=== PATIENT | female | born 1940 | race Caucasian/White ===

== ENCOUNTER 2019-05-09 08:30 | Inpatient (IN) | payer MEDICARE, BC ==
[2019-05-14] MEDS ORDERED: Povidone-Iodine 10% Soln 118.25 ML Bottle ONE (06:40)
[2019-05-14] MEDS ORDERED: Clindamycin Phosphate 900 MG in Sodium Chloride 0.9% 100 ML IV ONE (08:30)
[2019-05-14] MEDS ORDERED: Lactated Ringers 1,000 ML IV SCH (08:30)
[2019-05-14] MEDS: Nozin Nasal Sanitizer NASBOTH SCH ×2 (08:32→20:18)
[2019-05-14] MEDS ORDERED: Propofol 200 MG/20 ML SDV ONE ×2 (08:53→13:04)
[2019-05-14] MEDS ORDERED: Midazolam 1 MG/ML 2 ML SDV ONE (08:53)
[2019-05-14] MEDS ORDERED: fentaNYL 100 MCG/2 ML SDV ONE (08:53)
[2019-05-14] MEDS ORDERED: Tranexamic Acid 650 MG in Sodium Chloride 0.9% 50 ML IV ONE (11:00)
[2019-05-14] MEDS ORDERED: Lactated Ringers 1,000 ML ONE (13:34)
[2019-05-14] MEDS ORDERED: Tranexamic Acid 650 MG in Sodium Chloride 0.9% 50 ML IV PRN (14:00)
[2019-05-14] MEDS ORDERED: Magnesium Hydroxide 400 MG/5 ML Susp 30 ML Cup PO PRN (14:21)
[2019-05-14] MEDS ORDERED: Acetaminophen/HYDROcodone 325-5 MG Tab PO PRN (14:21)
[2019-05-14] MEDS ORDERED: Acetaminophen 325 MG Tab PO PRN (14:21)
[2019-05-14] MEDS ORDERED: Clindamycin Phosphate 900 MG in Dextrose 5% in Water 50 ML IV SCH ×2 (14:30)
[2019-05-14] MEDS: Morphine 2 MG/ML Syringe IVPUSH PRN (15:55)
[2019-05-14] MEDS ORDERED: Simvastatin 20 MG Tab PO SCH (17:00)
[2019-05-14] MEDS: Ondansetron 4 MG/2 ML SDV IVPUSH PRN (17:03)
--- NOTE | 2019-05-14 17:04 | CR ---
Knee 1V or 2V Lt CLINICAL HISTORY: Left knee arthroplasty FINDINGS: Patient is status post recent 3 component total knee arthroplasty. Components appear well seated. Patella appears somewhat high writing. This may be positional. There is intra-articular subcutaneous air. Impression: Recent 3 component total knee arthroplasty
[2019-05-14] MEDS: Acetaminophen/oxyCODONE 325-5 MG Tab PO PRN (17:09)
[2019-05-14] MEDS: Clindamycin Phosphate 900 MG in Sodium Chloride 0.9% 100 ML IV SCH (20:03)
[2019-05-14] MEDS: Docusate Sodium 100 MG Cap PO SCH (20:21)
[2019-05-14] MEDS: Citalopram 20 MG Tab PO SCH (20:21)
[2019-05-14] MEDS: Metoprolol Succinate 25 MG Tab.ER PO SCH (20:22)
[2019-05-14] MEDS: Potassium Chloride 20 MEQ Tab.ER PO SCH (20:22)
[2019-05-14] MEDS: Simvastatin 20 MG Tab PO SCH (20:23)
[2019-05-14] MEDS ORDERED: Docusate Sodium 100 MG Cap PO SCH (21:00)
[2019-05-14] MEDS ORDERED: Non-Formulary Medication 1 Each (Citalopram Hydrobromide [Citalopram Hbr] 20 MG) PO SCH (21:00)
[2019-05-14] MEDS ORDERED: Metoprolol Succinate 50 MG Tab.ER PO SCH (21:00)
[2019-05-14] MEDS ORDERED: POTASSIUM CHLORIDE 16 MEQ PO SCH (21:00)
[2019-05-14] MEDS: Sodium Chloride 0.9% 1,000 ML IV SCH (23:07)
[2019-05-15] MEDS: Acetaminophen/oxyCODONE 325-5 MG Tab PO PRN ×4 (03:07→15:23)
[2019-05-15] MEDS: Clindamycin Phosphate 900 MG in Sodium Chloride 0.9% 100 ML IV SCH ×2 (03:08→11:33)
[2019-05-15] MEDS: Pantoprazole 40 MG Tab.CR PO SCH (07:05)
[2019-05-15] MEDS: Sodium Chloride 0.9% 1,000 ML IV SCH ×2 (07:14→15:28)
[2019-05-15] MEDS: Nozin Nasal Sanitizer NASBOTH SCH ×2 (08:53→20:50)
[2019-05-15] MEDS: Citalopram 20 MG Tab PO SCH ×2 (08:54→20:46)
[2019-05-15] MEDS: Docusate Sodium 100 MG Cap PO SCH ×2 (08:54→20:46)
[2019-05-15] MEDS: Potassium Chloride 20 MEQ Tab.ER PO SCH ×2 (08:54→20:46)
[2019-05-15] MEDS: Saliva Substitute Oral Spray 120 ML Bottle MUCMEM SCH (08:55)
[2019-05-15] MEDS: Metoprolol Succinate 25 MG Tab.ER PO SCH ×2 (08:55→20:47)
[2019-05-15] MEDS ORDERED: Non-Formulary Medication 1 Each (Omeprazole [Omeprazole] 40 MG) PO SCH (09:00)
[2019-05-15] MEDS ORDERED: Enoxaparin 30 MG/0.3 ML Syringe SUBCUT SCH (09:00)
[2019-05-15] MEDS ORDERED: SALIVA STIMULANT AGENTS COMB PO SCH (09:00)
[2019-05-15] MEDS: Enoxaparin 30 MG/0.3 ML Syringe SUBCUT SCH (09:06)
[2019-05-15] MEDS: Morphine 2 MG/ML Syringe IVPUSH PRN ×2 (10:46→15:20)
[2019-05-15] MEDS ORDERED: Sodium Chloride 0.9% 500 ML IV ONE ×2 (14:43→19:00)
[2019-05-15] MEDS: Simvastatin 20 MG Tab PO SCH (20:46)
[2019-05-15] MEDS ORDERED: Potassium Chloride 20 MEQ Tab.ER PO SCH (21:00)
[2019-05-16] MEDS: Sodium Chloride 0.9% 1,000 ML IV SCH ×2 (01:53→09:54)
[2019-05-16] MEDS: Acetaminophen/oxyCODONE 325-5 MG Tab PO PRN ×4 (02:10→21:45)
[2019-05-16] MEDS: Morphine 2 MG/ML Syringe IVPUSH PRN (05:18)
[2019-05-16] MEDS: Pantoprazole 40 MG Tab.CR PO SCH (07:38)
[2019-05-16] MEDS: Nozin Nasal Sanitizer NASBOTH SCH ×2 (10:18→21:33)
[2019-05-16] MEDS: Citalopram 20 MG Tab PO SCH ×2 (10:19→21:33)
[2019-05-16] MEDS: Docusate Sodium 100 MG Cap PO SCH ×2 (10:19→21:33)
[2019-05-16] MEDS: Enoxaparin 30 MG/0.3 ML Syringe SUBCUT SCH (10:20)
[2019-05-16] MEDS: Saliva Substitute Oral Spray 120 ML Bottle MUCMEM SCH (10:21)
[2019-05-16] MEDS: Metoprolol Succinate 25 MG Tab.ER PO SCH ×2 (10:22→21:33)
[2019-05-16] MEDS ORDERED: Calcium Gluconate 1 GM in Sodium Chloride 0.9% 100 ML IV ONE (11:00)
[2019-05-16] MEDS: Potassium Chloride 20 MEQ Tab.ER PO SCH (12:11)
[2019-05-16] MEDS: Ondansetron 4 MG/2 ML SDV IVPUSH PRN (15:45)
[2019-05-16] MEDS: Simvastatin 20 MG Tab PO SCH (21:34)
[2019-05-17] MEDS: Acetaminophen/oxyCODONE 325-5 MG Tab PO PRN (02:23)
[2019-05-17] MEDS: Morphine 2 MG/ML Syringe IVPUSH PRN (04:28)
[2019-05-17] MEDS ORDERED: Sodium Phosphate,Monobasic/Sodium Phosphate,Dibasic Enema 133 ML Bottle RECTAL ONE (07:38)
[2019-05-17 08:22] VITALS: BP 139/66; PULSE 69
[2019-05-17] MEDS: Docusate Sodium 100 MG Cap PO SCH (09:00)
[2019-05-17] MEDS: Nozin Nasal Sanitizer NASBOTH SCH (09:00)
[2019-05-17] MEDS: Saliva Substitute Oral Spray 120 ML Bottle MUCMEM SCH (09:00)
[2019-05-17] MEDS: Pantoprazole 40 MG Tab.CR PO SCH (09:00)
[2019-05-17] MEDS: Metoprolol Succinate 25 MG Tab.ER PO SCH (09:00)
[2019-05-17] MEDS: Enoxaparin 30 MG/0.3 ML Syringe SUBCUT SCH (09:00)
[2019-05-17] MEDS: Citalopram 20 MG Tab PO SCH (09:00)
[2019-05-17] MEDS: Potassium Chloride 20 MEQ Tab.ER PO SCH (09:01)
--- NOTE | 2019-05-28 13:41 | OR ---
DATE OF PROCEDURE: 05/14/2019 SURGEON: Will Moran MD PREOPERATIVE DIAGNOSIS: Severe osteoarthritis, left knee. POSTOPERATIVE DIAGNOSIS: Severe osteoarthritis, left knee with patella ching. PROCEDURE: Left total knee arthroplasty using Rahul Persona components. INDICATIONS: Janette is an 79-year-old female with a history of progressive pain, stiffness, and disability related to severe end-stage osteoarthritis of both knees. She has a patella ching with complete loss of articular cartilage in the patellofemoral joint and moderate-to- severe changes of medial and lateral compartments. Has approximately a 20-degree flexion contracture in both knees and progressive difficulty with ambulation. She now presents for left total knee arthroplasty. Risks, benefits, potential complications of the procedure were discussed. She agrees to proceed. PROCEDURE IN DETAIL: After adequate anesthesia was obtained, patient was placed supine with a tourniquet about the left upper thigh. Left leg was prepped and draped in a sterile fashion. Leg was exsanguinated and tourniquet inflated to 300 mmHg. A longitudinal incision was made over the anterior aspect of the knee, carried down to the subcutaneous tissues. Hemostasis obtained with electrocautery. Medial parapatellar arthrotomy was performed. The patellofemoral joint reveals severe end-stage changes with complete loss of articular cartilage as well as significant thinning of the patella and grooves worn into both the patella and the trochlea. Osteophytes were removed from the periphery of the patella. Due to significant thinning, it was felt that resurfacing would be risky and the patella was not cut. Knee was flexed, and the intramedullary canal of the femur was entered with a drill. Intramedullary guide was placed, and the distal femoral guide was secured. An additional 4 mm was removed due to the flexion contracture. Attention was then turned to the tibia, where the extramedullary alignment jig was placed. This was aligned and secured, and the proximal tibia was cut with an oscillating saw. Knee was extended and remaining meniscus was excised. The femur was then sized and drill holes made for the cutting jig. Cutting jig was secured and remaining anterior, posterior, and chamfer cuts were then made. Trial femur was placed. PEG holes were drilled and an intercondylar notch cut was made for a posterior cruciate sacrificing component. Trial femur was removed, and the tibia was sized. The femur was replaced, appropriately sized tibial tray and a 10-mm insert were then placed. The knee was taken through range of motion and found to be stable in both flexion and extension. Tibial tray was secured. Proximal tibia was drilled and a broach used to cut tibial fins. Trials were removed, and the knee was thoroughly irrigated with the pulse lavage. Bone surfaces were dried. The components were cemented in place and the excess cement was removed. The knee was held in full extension with a trial tibial insert. Knee was held in full extension as the cement cured. The patella tracked extremely well. Again, due to the very thin nature of the remaining patella, patella ching, making likelihood of patella instability more likely with a resurfacing possible, the patella was left intact. Knee was then irrigated. This was followed by irrigation with a dilute Betadine solution, which was left in place for 2-1/2 minutes. The final tibial polyethylene was snapped into position. Knee was irrigated once again, and the knee was then closed with #2 Ethibond in interrupted fashion, the capsule 2-0 Vicryl, and a running 3-0 Monocryl on the skin, and Steri-Strips were applied. Light compressive dressing was then placed. The patient tolerated procedure well, there were no complications, taken from the operating room in stable condition. Will Moran MD /[id number]
== END 2019-05-17 10:42 | DRG 470 ==
LOC: JP.SDS 05-14 07:36 → JP.SDSSCHI 05-14 07:36 → EDSTATUS 05-14 10:00 → JP.MS 05-14 14:21
PROVIDERS: ADMIT Specialist; ATTEND Specialist
PROC: 0SRD0J9 Replacement of Left Knee Joint with Synthetic Substitute, Cemented, Open Approach (ICD-10-PCS; principal; 2019-05-14)
DX: M17.12 Unilateral primary osteoarthritis, left knee (principal); I10 Essential (primary) hypertension; E11.9 Type 2 diabetes mellitus without complications; J44.9 Chronic obstructive pulmonary disease, unspecified; E78.5 Hyperlipidemia, unspecified; K21.9 Gastro-esophageal reflux disease without esophagitis; M85.80 Other specified disorders of bone density and structure, unspecified site; N32.81 Overactive bladder; F41.9 Anxiety disorder, unspecified; F32.9 Major depressive disorder, single episode, unspecified; E55.9 Vitamin D deficiency, unspecified; Z90.49 Acquired absence of other specified parts of digestive tract; Z90.710 Acquired absence of both cervix and uterus; Z90.89 Acquired absence of other organs; Z88.1 Allergy status to other antibiotic agents; Z88.2 Allergy status to sulfonamides; Z88.0 Allergy status to penicillin; Z88.8 Allergy status to other drugs, medicaments and biological substances
CPT/HCPCS: 36415; 73560-26-LT; 73560-LT; 80048; 85027; 86850; 86900; 86901; 97110-GP; 97116-GP; 97162-GP; 97165-GO; 97530-GP; 97535-GP; 97760-GP; A9270-GY; C1713; C1776; J0610; J1650; J2250; J2270; J2405; J2704; J3010; J3490; J7030; J7040; J7050; J7120

== ENCOUNTER 2019-06-02 08:48 | Emergency (ER) | payer MEDICARE, BC ==
[2019-06-02] MEDS ORDERED: Acetaminophen/HYDROcodone 325-5 MG Tab PO ONE (09:06)
--- NOTE | 2019-06-02 09:09 | EDM.PDOC ---
ED HPI GENERAL MEDICAL PROBLEM - General Chief Complaint: Lower Extremity Injury/Pain Stated Complaint: ACCIDENT VIA [facility] Time Seen by Provider: 06/02/19 09:04 Source of Information: Reports: Patient History Limitations: Reports: No Limitations - History of Present Illness INITIAL COMMENTS - FREE TEXT/NARRATIVE: 79-year-old female presents emergency department with a complaint of right ankle pain, she injured herself in the shower this morning when she slipped and twisted on her right ankle. She denies any other injuries did not hit her head there was no loss of consciousness, pain is so severe she cannot bear weight Right Ankle Pain Score (Numeric/FACES): 9 - Related Data Allergies Allergy/AdvReac Type Severity Reaction Status Date / Time NESS Inhibitors Allergy unknown Verified 06/02/19 09:08 atenolol Allergy Bradycardia Verified 06/02/19 09:08 cephalexin Allergy Shortness Verified 06/02/19 09:08 of Breath heparin Allergy Hives Verified 06/02/19 09:08 imipramine [Imipramine] Allergy Cannot Verified 06/02/19 09:08 Remember ofloxacin [From Floxin] Allergy Cannot Verified 06/02/19 09:08 Remember Penicillins Allergy Shortness Verified 06/02/19 09:08 of Breath Sulfa (Sulfonamide Allergy Shortness Verified 06/02/19 09:08 Antibiotics) of Breath tetracycline [Tetracycline] Allergy Shortness Verified 06/02/19 09:08 of Breath warfarin [Warfarin] Allergy Hives Verified 06/02/19 09:08 lisinopril AdvReac Cough Verified 06/02/19 09:08 Home Meds: Home Meds Acetaminophen [Tylenol Extra Strength] 500 mg PO Q12H PRN 02/18/14 [History] Aspirin [Lv Chewable Aspirin] 81 mg PO DAILY 02/18/14 [History] Cholecalciferol (Vitamin D3) [Vitamin D3] 1,000 unit PO DAILY 02/18/14 [History] Citalopram Hydrobromide [Citalopram HBr] 20 mg PO BID 02/18/14 [History] Simvastatin 20 mg PO QPM 02/18/14 [History] Metoprolol Succinate 25 mg PO BID 07/06/17 [History] Omeprazole 40 mg PO DAILY 07/06/17 [History] Potassium Chloride 16 meq PO BID 04/30/19 [History] Saliva Stimulant Agents Comb.2 [Biotene Oralbalance] 1 applic PO DAILY 05/14/19 [History] Enoxaparin Sodium [Lovenox] 30 mg SQ DAILY 05/31/19 [History] Hydrocodone/Acetaminophen [[place] 5-325 Tablet] 1 tab PO Q6HR PRN 05/31/19 [ History] Oxybutynin Chloride [Ditropan Xl] 10 mg PO DAILY 06/02/19 [History] Past Medical History HEENT History: Reports: Cataract, Glaucoma, Other (See Below) Other HEENT History: recurring ear infections Cardiovascular History: Reports: Heart Murmur, High Cholesterol, Hypertension, Pacemaker, SOB on Exertion, Other (See Below) Other Cardiovascular History: Paroxysmal Atrial Flutter Respiratory History: Reports: Asthma, Bronchitis, Recurrent, Sleep Apnea Gastrointestinal History: Reports: Cholelithiasis, Chronic Diarrhea, GERD Genitourinary History: Reports: Urinary Incontinence 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: , 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 Musculoskeletal History: Reports: Osteoarthritis, Other (See Below) Other Musculoskeletal History: bilateral knee pain Neurological History: Reports: Headaches, Chronic, Neuropathy, Peripheral, Vertigo Psychiatric History: Reports: Anxiety, Depression, Panic Attack Endocrine/Metabolic History: Reports: Diabetes, Type II - Infectious Disease History Infectious Disease History: Reports: Chicken Pox, Measles, Mumps - Past Surgical History Head Surgeries/Procedures: Reports: None HEENT Surgical History: Reports: Tonsillectomy Cardiovascular Surgical History: Reports: Pacer Respiratory Surgical History: Reports: None GI Surgical History: Reports: Appendectomy, Cholecystectomy, Colonoscopy, EGD, Other (See Below) Female Surgical History: Reports: Cystectomy, Hysterectomy, Other (See Below) Endocrine Surgical History: Reports: None Neurological Surgical History: Reports: None Musculoskeletal Surgical History: Reports: Knee Replacement Other Musculoskeletal Surgeries/Procedures:: left total knee 05/14/19 Social & Family History - Family History Family Medical History: Noncontributory - Tobacco Use Smoking Status *Q: Never Smoker Second Hand Smoke Exposure: No - Caffeine Use Caffeine Use: Reports: None - Recreational Drug Use Recreational Drug Use: No Review of Systems - Review of Systems Review Of Systems: See Below Musculoskeletal: Reports: Joint Pain (Right ankle pain) Skin: Reports: No Symptoms Neurological: Reports: No Symptoms ED EXAM, GENERAL - Physical Exam Exam: See Below Free Text/Narrative:: Examination of the right ankle I do not appreciate any erythema or edema she is exquisitely tender to any movement at all of that ankle pedal pulses +2 there is no tenderness at the knee no tenderness at the hip sensation is intact Exam Limited By: No Limitations General Appearance: Alert, Mild Distress ED TRAUMA EXTREMITY PROCEDURES - Splinting Right Lower Extremity Pre-Procedure NV Status: Normal Post-Procedure NV Status: Normal Splint Material: Fiberglass Splint Design: Posterior Applied & Form Fitted By: Provider, Nurse Provider Post-Splint Application NV Check: NV Status Normal, Good Position Complications: No Course - Vital Signs Last Recorded V/S: Last Vital Signs Temp 96.9 F 06/02/19 10:12 Pulse 68 06/02/19 10:12 Resp 20 06/02/19 10:12 BP 135/47 L 06/02/19 10:12 Pulse Ox 93 L 06/02/19 10:12 - Orders/Labs/Meds Orders: Active Orders 24 hr Category Date Time Status Ankle 2V Rt [CR] Stat Exams 06/02/19 09:06 Taken Meds: Medications Discontinued Medications Generic Name Dose Route Start Last Admin Trade Name Rosario PRN Reason Stop Dose Admin Hydrocodone Bitart/Acetaminophen 1 tab 06/02/19 09:06 06/02/19 09:11 [place] 325-5 Mg PO 06/02/19 09:07 1 tab ONETIME ONE Administration Fentanyl 50 mcg 06/02/19 09:32 06/02/19 09:40 Sublimaze NASBOTH 06/02/19 09:33 50 mcg ONETIME ONE Administration Hydromorphone HCl 1 mg 06/02/19 10:04 06/02/19 10:09 Dilaudid IM 06/02/19 10:05 1 mg ONETIME ONE Administration Departure - Departure Time of Disposition: 10:54 Disposition: DC/Tfer to [facility] Condition: Fair Clinical Impression: Fracture of shaft of right tibia Qualifiers: Encounter type: initial encounter Fracture type: closed Fracture morphology: spiral Fracture alignment: nondisplaced Qualified Code(s): S82.244A - Nondisplaced spiral fracture of shaft of right tibia, initial encounter for closed fracture - Discharge Information Instructions: Tibial Fracture, Adult Referrals: Will Gonzalez Sr, MD [Primary Care Provider] - Forms: ED Department Discharge Additional Instructions: Use hydrocodone as needed for pain control, orthopedics will call you for an appointment time on Tuesday or Tuesday of next week Sepsis Event Note - Evaluation Sepsis Screening Result: No Definite Risk - Focused Exam Vital Signs: Vital Signs Temp Pulse Resp BP Pulse Ox 06/02/19 10:12 96.9 F 68 20 135/47 L 93 L 06/02/19 09:02 96.7 F L 66 20 149/57 H 96 Date Exam was Performed: 06/02/19 Time Exam was Performed: 10:52 - My Orders Last 24 Hours: My Active Orders 06/02/19 09:06 Ankle 2V Rt [CR] Stat - Assessment/Plan Last 24 Hours: My Active Orders 06/02/19 09:06 Ankle 2V Rt [CR] Stat Plan: Assessment Acuity = acute Site and laterality = right shaft tibia fracture Etiology = secondary to fall Manifestations = none Location of injury = Home Lab values = x-ray describes fracture above official read radiologist pending Plan She is placed in a posterior splint will follow-up with orthopedics on Tuesday, hydrocodone 5/325 1 tab p.o. 3 times daily for pain control This note was dictated using [employer] voice recognition software please call with any questions on syntax or grammar.
[2019-06-02] MEDS ORDERED: fentaNYL 100 MCG/2 ML SDV NASBOTH ONE (09:32)
[2019-06-02] MEDS ORDERED: HYDROmorphone 1 MG/ML Syringe IM ONE (10:04)
[2019-06-02 10:13] VITALS: BP 135/47; PULSE 68
--- NOTE | 2019-06-04 08:51 | CR ---
Ankle 2V Rt CLINICAL HISTORY: Pain, fall FINDINGS: Study is limited to 2 views. There is an oblique displaced fracture of the distal tibial shaft. There is also lucency through the medial malleolus. Ankle mortise is anatomic.. There is a nondisplaced fracture of the distal fibula with slight angulation. There is also a fracture of the proximal fibula. Impression: Limited study Displaced oblique fracture of the distal third of the tibial shaft Probable fracture through the medial malleolus Fractures of the proximal and distal fibula
== END 2019-06-02 12:30 ==
LOC: JP.ED 08:48
DX: S82.244A Nondisplaced spiral fracture of shaft of right tibia, initial encounter for closed fracture (principal); E78.00 Pure hypercholesterolemia, unspecified; I10 Essential (primary) hypertension; J45.909 Unspecified asthma, uncomplicated; E11.40 Type 2 diabetes mellitus with diabetic neuropathy, unspecified; F41.9 Anxiety disorder, unspecified; F32.9 Major depressive disorder, single episode, unspecified; K21.9 Gastro-esophageal reflux disease without esophagitis; Z88.0 Allergy status to penicillin; Z88.8 Allergy status to other drugs, medicaments and biological substances; Z88.1 Allergy status to other antibiotic agents; Z88.2 Allergy status to sulfonamides; Z79.82 Long term (current) use of aspirin; Z79.899 Other long term (current) drug therapy; X50.1XXA Overexertion from prolonged static or awkward postures, initial encounter
CPT/HCPCS: 29125; 29515; 73600; 96372; 99283; 99284; A9270; J1170; J3010

== ENCOUNTER 2020-04-18 18:46 | Emergency (ER) | payer MEDICARE, BC ==
--- NOTE | 2020-04-18 18:57 | EDM.PDOC ---
ED HPI GENERAL MEDICAL PROBLEM - General Chief Complaint: Diabetic Complaint Stated Complaint: LOW BLOOD SUGAR VIA [facility] Time Seen by Provider: 04/18/20 18:52 Source of Information: Reports: Patient, EMS, Old Records History Limitations: Reports: No Limitations - History of Present Illness INITIAL COMMENTS - FREE TEXT/NARRATIVE: 80 yo diabetic female from a local [facility] presents for hypoglycemia. It sounds like she was given her diabetic medication just a bit too far in advance of getting to her evening meal and developed hypoglycemia as she sat down to eat dinner. Due to the low BS she never actually got around to eating. Sent by EMS who noted a BS in the 30's en route. Glucose given po per EMS. 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) (glucose IV) - Related Data Allergies Allergy/AdvReac Type Severity Reaction Status Date / Time NESS Inhibitors Allergy unknown Verified 04/18/20 18:55 atenolol Allergy Bradycardia Verified 04/18/20 18:55 cephalexin Allergy Shortness Verified 04/18/20 18:55 of Breath heparin Allergy Hives Verified 04/18/20 18:55 imipramine [Imipramine] Allergy Cannot Verified 04/18/20 18:55 Remember ofloxacin [From Floxin] Allergy Cannot Verified 04/18/20 18:55 Remember Penicillins Allergy Shortness Verified 04/18/20 18:55 of Breath Sulfa (Sulfonamide Allergy Shortness Verified 04/18/20 18:55 Antibiotics) of Breath tetracycline [Tetracycline] Allergy Shortness Verified 04/18/20 18:55 of Breath warfarin [Warfarin] Allergy Hives Verified 04/18/20 18:55 lisinopril AdvReac Cough Verified 04/18/20 18:55 Home Meds: Home Meds Acetaminophen [Tylenol Extra Strength] 500 mg PO Q12H PRN 02/18/14 [History] Aspirin [Lv Chewable Aspirin] 81 mg PO DAILY 02/18/14 [History] Simvastatin 10 mg PO QPM 02/18/14 [History] Omeprazole 40 mg PO DAILY 07/06/17 [History] Potassium Chloride 16 meq PO BID 04/30/19 [History] Oxybutynin Chloride [Ditropan Xl] 10 mg PO DAILY 06/02/19 [History] Metoprolol Succinate 25 mg PO DAILY 06/28/19 [History] Sennosides [Senna] 1 tab PO BID 06/28/19 [History] polyethylene glycoL 3350 [MiraLAX] 17 gm PO DAILY 09/13/19 [History] Albuterol Sulfate [Albuterol Sulfate Hfa] 1 puff IH QID 11/21/19 [History] Furosemide [Lasix] 20 mg PO DAILY 11/21/19 [History] Trolamine Salicylate/Aloe Vera [Aspercreme 10% Cream] 85 gm TP .WHEN NEEDED PRN 11/21/19 [History] Acetaminophen/oxyCODONE [Percocet 325-5 MG] 1 tab PO BEDTIME PRN 01/01/20 [History] DULoxetine [Cymbalta] 90 mg PO DAILY 01/01/20 [History] Naproxen Sodium 220 mg PO Q12H PRN 01/01/20 [History] hydrOXYzine HCL [Hydroxyzine HCl] 25 mg PO BEDTIME 01/01/20 [History] Insulin Aspart [NovoLOG] 10 unit SQ TIDMEALS 02/14/20 [History] Losartan Potassium 25 mg PO DAILY 02/14/20 [History] Past Medical History HEENT History: Reports: Cataract, Glaucoma, Other (See Below) Other HEENT History: recurring ear infections Cardiovascular History: Reports: Heart Murmur, High Cholesterol, Hypertension, Pacemaker, SOB on Exertion, Other (See Below) Other Cardiovascular History: Paroxysmal Atrial Flutter Respiratory History: Reports: Asthma, Bronchitis, Recurrent, Sleep Apnea Gastrointestinal History: Reports: Cholelithiasis, Chronic Diarrhea, GERD Genitourinary History: Reports: Urinary Incontinence 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 R shoulder pain. s/p R tibia Fx 06/28/19 Neurological History: Reports: Headaches, Chronic, Neuropathy, Peripheral, Vertigo Psychiatric History: Reports: Anxiety, Depression, Panic Attack Endocrine/Metabolic History: Reports: Diabetes, Type II Hematologic History: Reports: None Immunologic History: Reports: None Oncologic (Cancer) History: Reports: None Dermatologic History: Reports: None - Infectious Disease History Infectious Disease History: Reports: Chicken Pox, Measles, Mumps - Past Surgical History Head Surgeries/Procedures: Reports: None HEENT Surgical History: Reports: Tonsillectomy Cardiovascular Surgical History: Reports: Pacer Respiratory Surgical History: Reports: None GI Surgical History: Reports: Appendectomy, Cholecystectomy, Colonoscopy, EGD, Other (See Below) Other GI Surgeries/Procedures: Hemorroidectomy Female Surgical History: Reports: Cystectomy, Hysterectomy, Other (See Below) Other Female Surgeries/Procedures: Had 4 bladder surgery Endocrine Surgical History: Reports: None Neurological Surgical History: Reports: None Musculoskeletal Surgical History: Reports: Knee Replacement, Other (See Below) Other Musculoskeletal Surgeries/Procedures:: left total knee 05/14/19. rt tib fx and orif Social & Family History - Family History Family Medical History: No Pertinent Family History - Caffeine Use Caffeine Use: Reports: Soda, Tea ED ROS GENERAL - Review of Systems Review Of Systems: See Below Constitutional: Reports: Malaise, Weakness HEENT: Reports: No Symptoms Respiratory: Reports: No Symptoms Cardiovascular: Reports: No Symptoms Endocrine: Reports: Low Glucose GI/Abdominal: Reports: No Symptoms : Reports: No Symptoms Musculoskeletal: Reports: No Symptoms Skin: Reports: No Symptoms Neurological: Reports: Confusion Psychiatric: Reports: No Symptoms ED EXAM GENERAL NO PERIP PULSE - Physical Exam Exam: See Below Exam Limited By: No Limitations General Appearance: Alert, WD/WN, No Apparent Distress Eye Exam: Bilateral Eye: Normal Inspection Ears: Normal External Exam, Normal Canal, Hearing Grossly Normal, Normal TMs Nose: Normal Inspection, No Blood Throat/Mouth: Normal Inspection, Normal Lips, Normal Oropharynx, Normal Voice, No Airway Compromise Head: Atraumatic, Normocephalic Neck: Normal Inspection Respiratory/Chest: No Respiratory Distress, Lungs Clear, Normal Breath Sounds, No Accessory Muscle Use Cardiovascular: Regular Rate, Rhythm, No Edema GI/Abdominal: Soft, Non-Tender Neurological: Alert, Oriented, CN II-XII Intact, Normal Cognition, No Motor/Sensory Deficits Psychiatric: Normal Affect, Normal Mood Skin Exam: Warm, Dry, Intact, Normal Color, No Rash Course - Vital Signs Last Recorded V/S: Last Vital Signs Temp 36.3 C 04/18/20 18:53 Pulse 94 04/18/20 18:53 Resp 16 04/18/20 18:53 BP 175/77 H 04/18/20 18:53 Pulse Ox 95 04/18/20 18:53 - Orders/Labs/Meds Orders: Active Orders 24 hr Category Date Time Status GLUCOSE POC LAB TO COLLECT JPM [POC] Stat Lab 04/18/20 19:35 Received GLUCOSE POC LAB TO COLLECT JPM [POC] Stat Lab 04/18/20 19:58 Ordered Labs: Laboratory Tests 04/18/20 Range/Units 18:52 POC Glucose 33 L* (74-106) MG/DL - Re-Assessments/Exams Free Text/Narrative Re-Assessment/Exam: 04/18/20 20:12 Glucose gradually rising here in the ER after being fed. Now 72, will send home. Departure - Departure Time of Disposition: 20:13 Disposition: Home, Self-Care 01 Condition: Good Clinical Impression: Hypoglycemia - Discharge Information *PRESCRIPTION DRUG MONITORING PROGRAM REVIEWED*: No *COPY OF PRESCRIPTION DRUG MONITORING REPORT IN PATIENT KEY: No Referrals: PCP,None [Primary Care Provider] - Forms: ED Department Discharge Additional Instructions: Check blood sugar before giving insulin to make sure she is not already low. Make sure not to give insulin too much in advance of a meal so that she becomes hypoglycemic before eating. Sepsis Event Note (ED) - Focused Exam Vital Signs: Vital Signs Temp Pulse Resp BP Pulse Ox 04/18/20 18:53 36.3 C 94 16 175/77 H 95 - My Orders Last 24 Hours: My Active Orders 04/18/20 19:35 GLUCOSE POC LAB TO COLLECT JPM [POC] Stat 04/18/20 19:58 GLUCOSE POC LAB TO COLLECT JPM [POC] Stat - Assessment/Plan Last 24 Hours: My Active Orders 04/18/20 19:35 GLUCOSE POC LAB TO COLLECT JPM [POC] Stat 04/18/20 19:58 GLUCOSE POC LAB TO COLLECT JPM [POC] Stat
[2020-04-18 19:19] VITALS: BP 175/77; PULSE 94
== END 2020-04-18 20:50 | disposition home or self-care (01) ==
LOC: JP.ED 18:46
DX: E11.649 Type 2 diabetes mellitus with hypoglycemia without coma (principal); I10 Essential (primary) hypertension; J45.909 Unspecified asthma, uncomplicated; K21.9 Gastro-esophageal reflux disease without esophagitis; F41.9 Anxiety disorder, unspecified; F32.9 Major depressive disorder, single episode, unspecified; E11.42 Type 2 diabetes mellitus with diabetic polyneuropathy; Z88.1 Allergy status to other antibiotic agents; Z88.8 Allergy status to other drugs, medicaments and biological substances; Z88.0 Allergy status to penicillin; Z88.2 Allergy status to sulfonamides; Z79.82 Long term (current) use of aspirin; Z79.4 Long term (current) use of insulin; Z90.49 Acquired absence of other specified parts of digestive tract; Z90.710 Acquired absence of both cervix and uterus; Z79.899 Other long term (current) drug therapy
CPT/HCPCS: 82962; 99284; 99285

== ENCOUNTER 2020-07-18 19:59 | Inpatient (IN) | payer MEDICARE, BC ==
[2020-07-18] MEDS ORDERED: Sodium Chloride 0.9% 10 ML Syringe FLUSH PRN (20:18)
[2020-07-18] MEDS ORDERED: Sodium Chloride 0.9% 500 ML IV ONE ×2 (21:08→22:14)
--- NOTE | 2020-07-18 21:16 | CRLCT ---
CT HEAD DATE: 07/18/2020 CLINICAL HISTORY: Patient with facial droop. TECHNIQUE: Standard CT scanning of the head was performed. COMPARISON: None. FINDINGS: There is no intracranial hemorrhage. There is no territorial infarction. There are mild microangiopathic changes. There is diffuse parenchymal volume loss. There is no mass effect or midline shift. The calvarium is unremarkable. The orbits are unremarkable. The paranasal sinuses are unremarkable. The mastoid air cells are unremarkable. The soft tissues are unremarkable. IMPRESSION: 1. No intracranial hemorrhage or territorial infarction. 2. Mild microangiopathic changes and diffuse parenchymal volume loss. Please note that all CT scans at this facility use dose modulation, iterative reconstruction, and/or weight-based dosing when appropriate to reduce radiation dose to as low as reasonably achievable. Dictated by: Feliz Goddard MD @ 07/18/2020 21:14:29 (Electronically Signed)
[2020-07-18] MEDS ORDERED: Cefepime 2 GM in Sodium Chloride 0.9% 50 ML IV ONE (22:23)
[2020-07-18] MEDS ORDERED: Lactated Ringers 1,000 ML IV SCH (22:30)
--- NOTE | 2020-07-18 22:33 | EDM.PDOC ---
ED HPI GENERAL MEDICAL PROBLEM - General Chief Complaint: Neuro Symptoms/Deficits Stated Complaint: POSSIBLE STROKE Time Seen by Provider: 07/18/20 20:18 Source of Information: Reports: EMS, Old Records History Limitations: Reports: Altered Mental Status - History of Present Illness INITIAL COMMENTS - FREE TEXT/NARRATIVE: Janette is an 80-year-old female presenting to the ED via [facility] from [facility] for evaluation of possible acute stroke. She was noted by nursing to have a left facial droop and was drooling the water out of her mouth that she was trying to drink. Patient reportedly has been increasingly weak throughout the day. Her saw her earlier today and noted that she had redness and swelling of her lower left eyelid and was seeming more tired than usual. EMS reported that she was quite hypotensive with a systolic pressure in the 70s. The patient does present with a POLST saying DNR/DNI and that she does not want any intensive care unit care but is not adverse to antibiotic and fluids for treatment of a reversible cause. 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 Generalized Pain Score (Numeric/FACES): 3 - Related Data Allergies Allergy/AdvReac Type Severity Reaction Status Date / Time NESS Inhibitors Allergy unknown Verified 04/18/20 18:55 atenolol Allergy Bradycardia Verified 04/18/20 18:55 cephalexin Allergy Shortness Verified 04/18/20 18:55 of Breath heparin Allergy Hives Verified 04/18/20 18:55 imipramine [Imipramine] Allergy Cannot Verified 04/18/20 18:55 Remember ofloxacin [From Floxin] Allergy Cannot Verified 04/18/20 18:55 Remember Penicillins Allergy Shortness Verified 04/18/20 18:55 of Breath Sulfa (Sulfonamide Allergy Shortness Verified 04/18/20 18:55 Antibiotics) of Breath tetracycline [Tetracycline] Allergy Shortness Verified 04/18/20 18:55 of Breath warfarin [Warfarin] Allergy Hives Verified 04/18/20 18:55 lisinopril AdvReac Cough Verified 04/18/20 18:55 Home Meds: Home Meds Acetaminophen [Acetaminophen Extra Strength] 500 mg PO BID 07/18/20 [History] Acetaminophen [Tylenol Extra Strength] 500 mg PO Q6H PRN 07/18/20 [History] Albuterol Sulfate [Albuterol Sulfate Hfa] 1 inhalation INH QID 07/18/20 [History] Aspirin 81 mg PO DAILY 07/18/20 [History] Calcium Carbonate [Tums] 1 - 2 tab.chew PO QID PRN 07/18/20 [History] DULoxetine HCl [Cymbalta] 90 mg PO DAILY 07/18/20 [History] Diphenoxylate HCl/Atropine [Diphenoxylate-Atrop 2.5-0.025] 1 - 2 tab-cap PO ASDIRECTED PRN MDD 6 07/18/20 [History] Furosemide 20 mg PO DAILY 07/18/20 [History] Gabapentin [Neurontin] 300 mg PO TID 07/18/20 [History] Gentamicin [Garamycin 0.3% Ophth Soln] 2 drop EYELF QID 07/18/20 [History] Insulin Aspart [NovoLOG] 4 - 14 units SUBCUT TID 07/18/20 [History] Insulin Aspart [NovoLOG] 5 units SUBCUT TIDMEALS 07/18/20 [History] Losartan Potassium 25 mg PO DAILY 07/18/20 [History] Metoprolol Succinate 25 mg PO DAILY 07/18/20 [History] Morphine Sulfate [Morphine Sulfate ER] 15 mg PO Q12H 07/18/20 [History] Naproxen Sodium 1 tab PO BID 07/18/20 [History] Omeprazole 20 mg PO DAILY 07/18/20 [History] Potassium Chloride [K-Tab ER] 16 meq PO BID 07/18/20 [History] QUEtiapine [SEROquel] 50 mg PO BEDTIME 07/18/20 [History] Sennosides/Docusate Sodium [Senna-Docusate Sodium Tablet] 2 tab PO BID 07/18/20 [History] Simvastatin 10 mg PO BEDTIME 07/18/20 [History] busPIRone HCl [Buspirone HCl] 15 mg PO BID 07/18/20 [History] polyethylene glycoL 3350 [Miralax] 17 gm PO DAILY 07/18/20 [History] Past Medical History HEENT History: Reports: Cataract, Glaucoma, Other (See Below) Other HEENT History: recurring ear infections Cardiovascular History: Reports: Heart Murmur, High Cholesterol, Hypertension, Pacemaker, SOB on Exertion, Other (See Below) Other Cardiovascular History: Paroxysmal Atrial Flutter Respiratory History: Reports: Asthma, Bronchitis, Recurrent, Sleep Apnea Gastrointestinal History: Reports: Cholelithiasis, Chronic Diarrhea, GERD Genitourinary History: Reports: Urinary Incontinence 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 R shoulder pain. s/p R tibia Fx 06/28/19 Neurological History: Reports: Headaches, Chronic, Neuropathy, Peripheral, Vertigo Psychiatric History: Reports: Anxiety, Depression, Panic Attack Endocrine/Metabolic History: Reports: Diabetes, Type II Hematologic History: Reports: None Immunologic History: Reports: None Oncologic (Cancer) History: Reports: None Dermatologic History: Reports: Other (See Below) Other Dermatologic History: diabetic foot ulcers - Infectious Disease History Infectious Disease History: Reports: Chicken Pox, Measles, Mumps - Past Surgical History HEENT Surgical History: Reports: Tonsillectomy Cardiovascular Surgical History: Reports: Pacer GI Surgical History: Reports: Appendectomy, Cholecystectomy, Colonoscopy, EGD, Other (See Below) Other GI Surgeries/Procedures: Hemorroidectomy Female Surgical History: Reports: Cystectomy, Hysterectomy, Other (See Below) Other Female Surgeries/Procedures: Had 4 bladder surgery Musculoskeletal Surgical History: Reports: Knee Replacement, Other (See Below) Other Musculoskeletal Surgeries/Procedures:: left total knee 05/14/19. rt tib fx and orif Social & Family History - Family History Family Medical History: No Pertinent Family History - Tobacco Use Tobacco Use Status *Q: Unknown Ever Used Tobacco Second Hand Smoke Exposure: No - Caffeine Use Caffeine Use: Reports: Coffee - Recreational Drug Use Recreational Drug Use: No ED ROS GENERAL - Review of Systems Review Of Systems: Unable To Obtain Reason Not Obtained: Altered mental status ED EXAM, NEURO - Physical Exam Exam: See Below Exam Limited By: Altered Mental Status General Appearance: Anxious, Mild Distress Eye Exam: Bilateral Eye: EOMI, PERRL Throat/Mouth: Normal Lips, Normal Voice, Other (By mucous membranes) Head Exam: Atraumatic, Normocephalic Neck: Normal Inspection, Supple. No: Carotid Bruit, Lymphadenopathy (R), Lymphadenopathy (L) Respiratory/Chest: No Respiratory Distress, Lungs Clear, Normal Breath Sounds, No Accessory Muscle Use Cardiovascular: Normal Peripheral Pulses, Regular Rate, Rhythm GI/Abdominal: Normal Bowel Sounds, Soft, Non-Tender. No: Guarding, Rigid, Rebound Neurological: Alert, Normal Dorsiflexion, CN II-XII Intact, Normal Plantar Flexion, Oriented x 3, Tremor (Essential type tremor), Other (Generalized weakness in all 4 extremities.) Extremities: No Pedal Edema, Redness (Right foot), Other (Bilateral hammertoes). No: Joint Swelling, Arm Pain, Augie's Sign, Leg Pain, Increased Warmth Psychiatric: Anxious Skin Exam: Warm, Intact, Erythema (Left lower eyelid and right foot) Course - Vital Signs Last Recorded V/S: Last Vital Signs Temp 35.8 C L 07/18/20 20:38 Pulse 65 07/18/20 22:15 Resp 16 07/18/20 21:58 BP 94/44 L 07/18/20 22:15 Pulse Ox 92 L 07/18/20 22:15 - Orders/Labs/Meds Orders: Active Orders 24 hr Category Date Time Status Chest 2V [CR] Stat Exams 07/18/20 20:18 Taken CULTURE BLOOD [BC] Stat Lab 07/18/20 22:29 Ordered CULTURE URINE [RM] Stat Lab 07/18/20 22:29 Ordered PROCALCITONIN [CHEM] Stat Lab 07/18/20 22:10 Ordered Cefepime [Maxipime] 2 gm Med 07/18/20 22:23 Active Sodium Chloride 0.9% [Normal Saline] 50 ml IV ONETIME Lactated Ringers [Ringers, Lactated] 1,000 ml Med 07/18/20 22:30 Active IV ASDIRECTED Sodium Chloride 0.9% [Normal Saline] 500 ml Med 07/18/20 22:14 Active IV .BOLUS Sodium Chloride 0.9% [Saline Flush] Med 07/18/20 20:18 Active 10 ml FLUSH ASDIRECTED PRN Vancomycin 1 gm Med 07/18/20 22:23 Active Sodium Chloride 0.9% [Normal Saline] 250 ml IV ONETIME Saline Lock Insert [OM.PC] Routine Oth 07/18/20 20:18 Ordered Medication Orders Sodium Chloride (Normal Saline) 500 mls @ 999 mls/hr IV .BOLUS ONE Stop: 07/18/20 22:44 Last Admin: 07/18/20 21:47 Dose: 999 mls/hr Documented by: SARITA Lactated Ringer's (Ringers, Lactated) 1,000 mls @ 999 mls/hr IV ASDIRECTED FABIOLA Last Admin: 07/18/20 22:25 Dose: 999 mls/hr Documented by: SARITA Cefepime HCl 2 gm/ Sodium (Chloride) 50 mls @ 100 mls/hr IV ONETIME ONE Stop: 07/18/20 22:52 Vancomycin HCl 1 gm/ Sodium (Chloride) 250 mls @ 150 mls/hr IV ONETIME ONE Stop: 07/19/20 00:02 Sodium Chloride (Sodium Chloride 0.9% 10 Ml Syringe) 10 ml FLUSH ASDIRECTED PRN PRN Reason: Keep Vein Open Last Admin: 07/18/20 20:50 Dose: 10 ml Documented by: SARITA Labs: Laboratory Tests 07/18/20 07/18/20 07/18/20 Range/Units 20:30 20:30 20:30 WBC 12.1 H (4.5-11.0) K/uL RBC 3.50 (3.30-5.50) M/uL Hgb 10.1 L D (12.0-15.0) g/dL Hct 32.5 L (36.0-48.0) % MCV 93 (80-98) fL MCH 29 (27-31) pg MCHC 31 L (32-36) % Plt Count 297 (150-400) K/uL Neut % (Auto) 83 H (36-66) % Lymph % (Auto) 7 L (24-44) % [place] % (Auto) 6 (2-6) % Eos % (Auto) 4 (2-4) % Baso % (Auto) 0 (0-1) % PT 10.5 (9.5-12.0) sec INR 0.96 (0.80-1.20) APTT 26.9 L (27.0-36.0) sec Sodium 135 L (140-148) mmol/L Potassium 5.1 (3.6-5.2) mmol/L Chloride 96 L (100-108) mmol/L Carbon Dioxide 28 (21-32) mmol/L Anion Gap 16.1 H (5.0-14.0) mmol/L BUN 38 H D (7-18) mg/dL Creatinine 1.3 H D (0.6-1.0) mg/dL Est Cr Clr Drug Dosing 26.84 mL/min Estimated GFR (MDRD) 39 L (>60) Glucose 115 H (74-106) mg/dL Lactic Acid (0.4-2.0) mmol/L Calcium 8.9 (8.5-10.1) mg/dL Total Bilirubin 0.4 (0.2-1.0) mg/dL AST 19 (15-37) U/L ALT 16 (12-78) U/L Alkaline Phosphatase 164 H (46-116) U/L Troponin I < 0.017 (0.000-0.056) ng/mL C-Reactive Protein 4.81 H (0.0-0.3) mg/dL Total Protein 6.2 L (6.4-8.2) g/dL Albumin 3.1 L (3.4-5.0) g/dL Globulin 3.1 (2.3-3.5) g/dL Albumin/Globulin Ratio 1.0 L (1.2-2.2) Urine Color (YELLOW) Urine Appearance (CLEAR) Urine pH (5.0-8.0) Ur Specific [place] (1.008-1.030) Urine Protein (NEGATIVE) mg/dL Urine Glucose (UA) (NEGATIVE) mg/dL Urine Ketones (NEGATIVE) mg/dL Urine Occult Blood (NEGATIVE) Urine Nitrite (NEGATIVE) Urine Bilirubin (NEGATIVE) Urine Urobilinogen (0.2-1.0) EU/dL Ur Leukocyte Esterase (NEGATIVE) Urine RBC (0-5) Urine WBC (0-5) Ur Epithelial Cells Amorphous Sediment Urine Bacteria Urine Mucus 07/18/20 07/18/20 Range/Units 20:30 21:05 WBC (4.5-11.0) K/uL RBC (3.30-5.50) M/uL Hgb (12.0-15.0) g/dL Hct (36.0-48.0) % MCV (80-98) fL MCH (27-31) pg MCHC (32-36) % Plt Count (150-400) K/uL Neut % (Auto) (36-66) % Lymph % (Auto) (24-44) % [place] % (Auto) (2-6) % Eos % (Auto) (2-4) % Baso % (Auto) (0-1) % PT (9.5-12.0) sec INR (0.80-1.20) APTT (27.0-36.0) sec Sodium (140-148) mmol/L Potassium (3.6-5.2) mmol/L Chloride (100-108) mmol/L Carbon Dioxide (21-32) mmol/L Anion Gap (5.0-14.0) mmol/L BUN (7-18) mg/dL Creatinine (0.6-1.0) mg/dL Est Cr Clr Drug Dosing mL/min Estimated GFR (MDRD) (>60) Glucose (74-106) mg/dL Lactic Acid 1.6 (0.4-2.0) mmol/L Calcium (8.5-10.1) mg/dL Total Bilirubin (0.2-1.0) mg/dL AST (15-37) U/L ALT (12-78) U/L Alkaline Phosphatase (46-116) U/L Troponin I (0.000-0.056) ng/mL C-Reactive Protein (0.0-0.3) mg/dL Total Protein (6.4-8.2) g/dL Albumin (3.4-5.0) g/dL Globulin (2.3-3.5) g/dL Albumin/Globulin Ratio (1.2-2.2) Urine Color Yellow (YELLOW) Urine Appearance Slightly cloudy A (CLEAR) Urine pH 5.5 (5.0-8.0) Ur Specific [place] 1.015 (1.008-1.030) Urine Protein Negative (NEGATIVE) mg/dL Urine Glucose (UA) Negative (NEGATIVE) mg/dL Urine Ketones Negative (NEGATIVE) mg/dL Urine Occult Blood Negative (NEGATIVE) Urine Nitrite Negative (NEGATIVE) Urine Bilirubin Negative (NEGATIVE) Urine Urobilinogen 0.2 (0.2-1.0) EU/dL Ur Leukocyte Esterase Trace H (NEGATIVE) Urine RBC 0-5 (0-5) Urine WBC 0-5 (0-5) Ur Epithelial Cells Not seen Amorphous Sediment Not seen Urine Bacteria Not seen Urine Mucus Not seen Meds: Medications Generic Name Dose Route Start Last Admin Trade Name Freq PRN Reason Stop Dose Admin Sodium Chloride 500 mls @ 999 mls/hr 07/18/20 22:14 07/18/20 21:47 Normal Saline IV 07/18/20 22:44 999 mls/hr .BOLUS ONE Administration Lactated Ringer's 1,000 mls @ 999 mls/hr 07/18/20 22:30 07/18/20 22:25 Ringers, Lactated IV 999 mls/hr ASDIRECTED FABIOLA Administration Cefepime HCl 2 gm/ Sodium 50 mls @ 100 mls/hr 07/18/20 22:23 Chloride IV 07/18/20 22:52 ONETIME ONE Vancomycin HCl 1 gm/ Sodium 250 mls @ 150 mls/hr 07/18/20 22:23 Chloride IV 07/19/20 00:02 ONETIME ONE Sodium Chloride 10 ml 07/18/20 20:18 07/18/20 20:50 Sodium Chloride 0.9% 10 Ml Syringe FLUSH 10 ml ASDIRECTED PRN Administration Keep Vein Open Discontinued Medications Generic Name Dose Route Start Last Admin Trade Name Freq PRN Reason Stop Dose Admin Sodium Chloride 500 mls @ 999 mls/hr 07/18/20 21:08 07/18/20 21:15 Normal Saline IV 07/18/20 21:38 999 mls/hr .BOLUS ONE Administration - Re-Assessments/Exams Free Text/Narrative Re-Assessment/Exam: 07/18/20 22:42 reviewed the patient's labs showing a mild leukocytosis of 12.1 with a left shift. Her C-reactive protein is elevated at 4.38. She remains hypotensive but did respond to a fluid challenge. Her lactic acid is 1.6. Blood cultures have been obtained and we initiated broad-spectrum antibiotics with cefepime and vancomycin. The patient has a penicillin allergy so we cannot use the Zosyn. Culture was also obtained. The patient has a POLST limiting aggressive care. She would benefit from pressors, however, she is responding to a fluid challenge and likely may turnaround with IV antibiotics. The and I discussed her POLST and that she would not like to have ICU care negating the use of vasopressors. I discussed the case with her primary doctor, Dr. Will Gonzalez who will arrange to admit the patient for further care. I did discuss with the patient's the this could be the beginning of a natural . Work-up for stroke was unremarkable as I do not see any facial droop. Her NIH stroke score is a 1. A CT of the brain was performed and is unremarkable for any acute findings. She does have moderate volume loss and small vessel disease. Departure - Departure Time of Disposition: 22:46 Disposition: Admitted As Inpatient 65 Clinical Impression: Hypotension Qualifiers: Hypotension type: hypotension due to hypovolemia Qualified Code(s): I95.89 - Other hypotension; E86.1 - Hypovolemia Altered mental status Qualifiers: Altered mental status type: somnolence Qualified Code(s): R40.0 - Somnolence Leukocytosis Qualifiers: Leukocytosis type: leukemoid reaction Qualified Code(s): D72.823 - Leukemoid reaction - Discharge Information Referrals: Will Gonzalez Sr, MD [Primary Care Provider] - Forms: ED Department Discharge Sepsis Event Note (ED) - Evaluation Sepsis Screening Result: No Definite Risk - Focused Exam Vital Signs: Vital Signs Temp Pulse Resp BP Pulse Ox 07/18/20 22:15 65 94/44 L 92 L 07/18/20 21:58 64 16 84/35 L 92 L 07/18/20 21:29 68 12 77/34 L 93 L 07/18/20 21:05 71 20 73/35 L 95 07/18/20 20:49 74 18 79/41 L 93 L 07/18/20 20:38 35.8 C L 70 16 113/37 L 98 07/18/20 20:06 35.8 C L 70 16 113/37 L 98 - Problem List & Annotations (1) Altered mental status SNOMED Code(s): 670508260 Code(s): R41.82 - ALTERED MENTAL STATUS, UNSPECIFIED Status: Acute Priority: High Current Visit: Yes Qualifiers: Altered mental status type: somnolence Qualified Code(s): R40.0 - Somnolence (2) Hypotension SNOMED Code(s): 40959076 Code(s): I95.9 - HYPOTENSION, UNSPECIFIED Status: Acute Priority: High Current Visit: Yes Qualifiers: Hypotension type: hypotension due to hypovolemia Qualified Code(s): I95.89 - Other hypotension; E86.1 - Hypovolemia (3) Leukocytosis SNOMED Code(s): 848497086, 119727726 Code(s): D72.829 - ELEVATED WHITE BLOOD CELL COUNT, UNSPECIFIED Status: Acute Priority: High Current Visit: Yes Qualifiers: Leukocytosis type: leukemoid reaction Qualified Code(s): D72.823 - Leukemoid reaction - Problem List Review Problem List Initiated/Reviewed/Updated: Yes - My Orders Last 24 Hours: My Active Orders 07/18/20 20:18 Chest 2V [CR] Stat Sodium Chloride 0.9% [Saline Flush] 10 ml FLUSH ASDIRECTED PRN Saline Lock Insert [OM.PC] Routine 07/18/20 22:10 PROCALCITONIN [CHEM] Stat 07/18/20 22:14 Sodium Chloride 0.9% [Normal Saline] 500 ml IV .BOLUS 07/18/20 22:23 Cefepime [Maxipime] 2 gm Sodium Chloride 0.9% [Normal Saline] 50 ml IV ONETIME Vancomycin 1 gm Sodium Chloride 0.9% [Normal Saline] 250 ml IV ONETIME 07/18/20 22:29 CULTURE BLOOD [BC] Stat CULTURE URINE [RM] Stat 07/18/20 22:30 Lactated Ringers [Ringers, Lactated] 1,000 ml IV ASDIRECTED - Assessment/Plan Last 24 Hours: My Active Orders 07/18/20 20:18 Chest 2V [CR] Stat Sodium Chloride 0.9% [Saline Flush] 10 ml FLUSH ASDIRECTED PRN Saline Lock Insert [OM.PC] Routine 07/18/20 22:10 PROCALCITONIN [CHEM] Stat 07/18/20 22:14 Sodium Chloride 0.9% [Normal Saline] 500 ml IV .BOLUS 07/18/20 22:23 Cefepime [Maxipime] 2 gm Sodium Chloride 0.9% [Normal Saline] 50 ml IV ONETIME Vancomycin 1 gm Sodium Chloride 0.9% [Normal Saline] 250 ml IV ONETIME 07/18/20 22:29 CULTURE BLOOD [BC] Stat CULTURE URINE [RM] Stat 07/18/20 22:30 Lactated Ringers [Ringers, Lactated] 1,000 ml IV ASDIRECTED
[2020-07-18] MEDS ORDERED: Cefepime 1 GM Vial ONE (22:38)
[2020-07-18] MEDS ORDERED: Sodium Chloride 0.9% 50 ML ONE (22:40)
--- NOTE | 2020-07-18 23:21 | PCM.HP.2 ---
H&P History of Present Illness - General Date of Service: 07/18/20 Admit Problem/Dx: Admission Diagnosis/Problem Admission Diagnosis/Problem Septicemia Source of Information: EMS, Family, Detention Records, Old Records History Limitations: Reports: Altered Mental Status - History of Present Illness Initial Comments - Free Text/Narative: At the prison she had signs of a CVA with sudden mental change and sent to the ER. She is lethargic unable to respond to questions which is a sudden change from earlier today,. She was also hypotensive. Onset of Symptoms: Reports: Sudden Duration of Symptoms: Reports: Hour(s): Associated Symptoms: Reports: Confusion Generalized Pain Score (Numeric/FACES): 3 - Related Data Allergies/Adverse Reactions: Allergies Allergy/AdvReac Type Severity Reaction Status Date / Time NESS Inhibitors Allergy unknown Verified 04/18/20 18:55 atenolol Allergy Bradycardia Verified 04/18/20 18:55 cephalexin Allergy Shortness Verified 04/18/20 18:55 of Breath heparin Allergy Hives Verified 04/18/20 18:55 imipramine [Imipramine] Allergy Cannot Verified 04/18/20 18:55 Remember ofloxacin [From Floxin] Allergy Cannot Verified 04/18/20 18:55 Remember Penicillins Allergy Shortness Verified 04/18/20 18:55 of Breath Sulfa (Sulfonamide Allergy Shortness Verified 04/18/20 18:55 Antibiotics) of Breath tetracycline [Tetracycline] Allergy Shortness Verified 04/18/20 18:55 of Breath warfarin [Warfarin] Allergy Hives Verified 04/18/20 18:55 lisinopril AdvReac Cough Verified 04/18/20 18:55 Home Medications: Home Meds Acetaminophen [Acetaminophen Extra Strength] 500 mg PO BID 07/18/20 [History] Acetaminophen [Tylenol Extra Strength] 500 mg PO Q6H PRN 07/18/20 [History] Albuterol Sulfate [Albuterol Sulfate Hfa] 1 inhalation INH QID 07/18/20 [History] Aspirin 81 mg PO DAILY 07/18/20 [History] Calcium Carbonate [Tums] 1 - 2 tab.chew PO QID PRN 07/18/20 [History] DULoxetine HCl [Cymbalta] 90 mg PO DAILY 07/18/20 [History] Diphenoxylate HCl/Atropine [Diphenoxylate-Atrop 2.5-0.025] 1 - 2 tab-cap PO ASDIRECTED PRN MDD 6 07/18/20 [History] Furosemide 20 mg PO DAILY 07/18/20 [History] Gabapentin [Neurontin] 300 mg PO TID 07/18/20 [History] Gentamicin [Garamycin 0.3% Ophth Soln] 2 drop EYELF QID 07/18/20 [History] Insulin Aspart [NovoLOG] 4 - 14 units SUBCUT TID 07/18/20 [History] Insulin Aspart [NovoLOG] 5 units SUBCUT TIDMEALS 07/18/20 [History] Losartan Potassium 25 mg PO DAILY 07/18/20 [History] Metoprolol Succinate 25 mg PO DAILY 07/18/20 [History] Morphine Sulfate [Morphine Sulfate ER] 15 mg PO Q12H 07/18/20 [History] Naproxen Sodium 1 tab PO BID 07/18/20 [History] Omeprazole 20 mg PO DAILY 07/18/20 [History] Potassium Chloride [K-Tab ER] 16 meq PO BID 07/18/20 [History] QUEtiapine [SEROquel] 50 mg PO BEDTIME 07/18/20 [History] Sennosides/Docusate Sodium [Senna-Docusate Sodium Tablet] 2 tab PO BID 07/18/20 [History] Simvastatin 10 mg PO BEDTIME 07/18/20 [History] busPIRone HCl [Buspirone HCl] 15 mg PO BID 07/18/20 [History] polyethylene glycoL 3350 [Miralax] 17 gm PO DAILY 07/18/20 [History] Past Medical History HEENT History: Reports: Cataract, Glaucoma, Other (See Below) Other HEENT History: recurring ear infections Cardiovascular History: Reports: Heart Murmur, High Cholesterol, Hypertension, Pacemaker, SOB on Exertion, Other (See Below) Other Cardiovascular History: Paroxysmal Atrial Flutter Respiratory History: Reports: Asthma, Bronchitis, Recurrent, Sleep Apnea Gastrointestinal History: Reports: Cholelithiasis, Chronic Diarrhea, GERD Genitourinary History: Reports: Urinary Incontinence [employer] MANAGER History: Reports: , 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 R shoulder pain. s/p R tibia Fx 06/28/19 Neurological History: Reports: Headaches, Chronic, Neuropathy, Peripheral, Vertigo Psychiatric History: Reports: Anxiety, Depression, Panic Attack Endocrine/Metabolic History: Reports: Diabetes, Type II Hematologic History: Reports: None Immunologic History: Reports: None Oncologic (Cancer) History: Reports: None Dermatologic History: Reports: Other (See Below) Other Dermatologic History: diabetic foot ulcers - Infectious Disease History Infectious Disease History: Reports: Chicken Pox, Measles, Mumps - Past Surgical History HEENT Surgical History: Reports: Tonsillectomy Cardiovascular Surgical History: Reports: Pacer GI Surgical History: Reports: Appendectomy, Cholecystectomy, Colonoscopy, EGD, Other (See Below) Other GI Surgeries/Procedures: Hemorroidectomy Female Surgical History: Reports: Cystectomy, Hysterectomy, Other (See Below) Other Female Surgeries/Procedures: Had 4 bladder surgery Musculoskeletal Surgical History: Reports: Knee Replacement, Other (See Below) Other Musculoskeletal Surgeries/Procedures:: left total knee 05/14/19. rt tib fx and orif Social & Family History - Family History Family Medical History: No Pertinent Family History - Tobacco Use Tobacco Use Status *Q: Unknown Ever Used Tobacco Second Hand Smoke Exposure: No - Caffeine Use Caffeine Use: Reports: Coffee - Recreational Drug Use Recreational Drug Use: No H&P Review of Systems - Review of Systems: Review Of Systems: See Below General: Reports: Weakness HEENT: Reports: No Symptoms Pulmonary: Reports: No Symptoms Cardiovascular: Reports: No Symptoms Gastrointestinal: Reports: Abdominal Pain Musculoskeletal: Reports: Back Pain, Leg Pain, Foot Pain, Joint Pain Skin: Reports: No Symptoms Psychiatric: Reports: Hallucinations (Visual) Neurological: Reports: Confusion Exam - Exam Exam: See Below - Vital Signs Vital Signs: Last Vital Signs Temp 96.5 F L 07/18/20 20:38 Pulse 65 07/18/20 23:02 Resp 15 07/18/20 23:02 BP 91/44 L 07/18/20 23:02 Pulse Ox 93 L 07/18/20 23:02 Weight: 149 lb - Exam General: Lethargic HEENT: PERRLA, EACs Clear, Pupils Reactive Neck: Supple Lungs: Clear to Auscultation Cardiovascular: Regular Rate GI/Abdominal Exam: Normal Bowel Sounds, Soft, Non-Tender Extremities: Pedal Edema, Joint Swelling, Redness Peripheral Pulses: 1+: Radial (L), Radial (R) Skin: Warm, Dry Neuro Extensive - Mental Status: Extensor Response to Pain, Withdraws to Pain DTR: 1+: Bicep (L), Bicep (R) Psychiatric: Other (lethergic) - Patient Data Lab Results Last 24 hrs: Laboratory Results - last 24 hr 07/18/20 07/18/20 07/18/20 Range/Units 20:30 20:30 20:30 WBC 12.1 H (4.5-11.0) K/uL RBC 3.50 (3.30-5.50) M/uL Hgb 10.1 L D (12.0-15.0) g/dL Hct 32.5 L (36.0-48.0) % MCV 93 (80-98) fL MCH 29 (27-31) pg MCHC 31 L (32-36) % Plt Count 297 (150-400) K/uL Neut % (Auto) 83 H (36-66) % Lymph % (Auto) 7 L (24-44) % [place] % (Auto) 6 (2-6) % Eos % (Auto) 4 (2-4) % Baso % (Auto) 0 (0-1) % PT 10.5 (9.5-12.0) sec INR 0.96 (0.80-1.20) APTT 26.9 L (27.0-36.0) sec Sodium 135 L (140-148) mmol/L Potassium 5.1 (3.6-5.2) mmol/L Chloride 96 L (100-108) mmol/L Carbon Dioxide 28 (21-32) mmol/L Anion Gap 16.1 H (5.0-14.0) mmol/L BUN 38 H D (7-18) mg/dL Creatinine 1.3 H D (0.6-1.0) mg/dL Est Cr Clr Drug Dosing 26.84 mL/min Estimated GFR (MDRD) 39 L (>60) Glucose 115 H (74-106) mg/dL Lactic Acid (0.4-2.0) mmol/L Calcium 8.9 (8.5-10.1) mg/dL Total Bilirubin 0.4 (0.2-1.0) mg/dL AST 19 (15-37) U/L ALT 16 (12-78) U/L Alkaline Phosphatase 164 H (46-116) U/L Troponin I < 0.017 (0.000-0.056) ng/mL C-Reactive Protein 4.81 H (0.0-0.3) mg/dL Total Protein 6.2 L (6.4-8.2) g/dL Albumin 3.1 L (3.4-5.0) g/dL Globulin 3.1 (2.3-3.5) g/dL Albumin/Globulin Ratio 1.0 L (1.2-2.2) Procalcitonin ng/mL Urine Color (YELLOW) Urine Appearance (CLEAR) Urine pH (5.0-8.0) Ur Specific [place] (1.008-1.030) Urine Protein (NEGATIVE) mg/dL Urine Glucose (UA) (NEGATIVE) mg/dL Urine Ketones (NEGATIVE) mg/dL Urine Occult Blood (NEGATIVE) Urine Nitrite (NEGATIVE) Urine Bilirubin (NEGATIVE) Urine Urobilinogen (0.2-1.0) EU/dL Ur Leukocyte Esterase (NEGATIVE) Urine RBC (0-5) Urine WBC (0-5) Ur Epithelial Cells Amorphous Sediment Urine Bacteria Urine Mucus 07/18/20 07/18/20 07/18/20 Range/Units 20:30 21:05 22:10 WBC (4.5-11.0) K/uL RBC (3.30-5.50) M/uL Hgb (12.0-15.0) g/dL Hct (36.0-48.0) % MCV (80-98) fL MCH (27-31) pg MCHC (32-36) % Plt Count (150-400) K/uL Neut % (Auto) (36-66) % Lymph % (Auto) (24-44) % [place] % (Auto) (2-6) % Eos % (Auto) (2-4) % Baso % (Auto) (0-1) % PT (9.5-12.0) sec INR (0.80-1.20) APTT (27.0-36.0) sec Sodium (140-148) mmol/L Potassium (3.6-5.2) mmol/L Chloride (100-108) mmol/L Carbon Dioxide (21-32) mmol/L Anion Gap (5.0-14.0) mmol/L BUN (7-18) mg/dL Creatinine (0.6-1.0) mg/dL Est Cr Clr Drug Dosing mL/min Estimated GFR (MDRD) (>60) Glucose (74-106) mg/dL Lactic Acid 1.6 (0.4-2.0) mmol/L Calcium (8.5-10.1) mg/dL Total Bilirubin (0.2-1.0) mg/dL AST (15-37) U/L ALT (12-78) U/L Alkaline Phosphatase (46-116) U/L Troponin I (0.000-0.056) ng/mL C-Reactive Protein (0.0-0.3) mg/dL Total Protein (6.4-8.2) g/dL Albumin (3.4-5.0) g/dL Globulin (2.3-3.5) g/dL Albumin/Globulin Ratio (1.2-2.2) Procalcitonin < 0.05 ng/mL Urine Color Yellow (YELLOW) Urine Appearance Slightly cloudy A (CLEAR) Urine pH 5.5 (5.0-8.0) Ur Specific [place] 1.015 (1.008-1.030) Urine Protein Negative (NEGATIVE) mg/dL Urine Glucose (UA) Negative (NEGATIVE) mg/dL Urine Ketones Negative (NEGATIVE) mg/dL Urine Occult Blood Negative (NEGATIVE) Urine Nitrite Negative (NEGATIVE) Urine Bilirubin Negative (NEGATIVE) Urine Urobilinogen 0.2 (0.2-1.0) EU/dL Ur Leukocyte Esterase Trace H (NEGATIVE) Urine RBC 0-5 (0-5) Urine WBC 0-5 (0-5) Ur Epithelial Cells Not seen Amorphous Sediment Not seen Urine Bacteria Not seen Urine Mucus Not seen Result Diagrams: 07/20/20 04:10 07/20/20 04:10 Sepsis Event Note - Evaluation Sepsis Screening Result: No Definite Risk - Focused Exam Vital Signs: Vital Signs Temp Pulse Resp BP Pulse Ox 07/18/20 23:02 65 15 91/44 L 93 L 07/18/20 22:15 65 94/44 L 92 L 07/18/20 21:58 64 16 84/35 L 92 L 07/18/20 21:29 68 12 77/34 L 93 L 07/18/20 21:05 71 20 73/35 L 95 07/18/20 20:49 74 18 79/41 L 93 L 07/18/20 20:38 96.5 F L 70 16 113/37 L 98 07/18/20 20:06 96.5 F L 70 16 113/37 L 98 Problem List Initiated/Reviewed/Updated: Yes Orders Last 24hrs: Active Orders 24 hr Category Date Time Status Patient Status [ADT] Routine ADT 07/18/20 23:07 Ordered Height and Weight [RC] DAILY Care 07/18/20 23:02 Ordered Intake and Output [RC] QSHIFT Care 07/18/20 23:09 Ordered Oxygen Therapy [RC] PRN Care 07/18/20 23:07 Ordered VTE/DVT Education [RC] Per Unit Routine Care 07/18/20 23:07 Ordered Vital Signs [RC] Q4H Care 07/18/20 23:07 Ordered Chest 2V [CR] Stat Exams 07/18/20 20:18 Taken BASIC METABOLIC PANEL,BMP [CHEM] DAILY Lab 07/18/20 23:15 Ordered CBC WITH AUTO DIFF [HEME] DAILY Lab 07/18/20 23:15 Ordered CULTURE BLOOD [BC] Stat Lab 07/18/20 22:45 Received CULTURE URINE [RM] Stat Lab 07/18/20 22:15 Received Lactated Ringers @ 125 MLS/HR(1000ml) Med 07/18/20 23:15 Ordered Lactated Ringers [Ringers, Lactated] 1,000 ml IV ASDIRECTED Lactated Ringers [Ringers, Lactated] 1,000 ml Med 07/18/20 22:30 Active IV ASDIRECTED Sodium Chloride 0.9% [Saline Flush] Med 07/18/20 20:18 Active 10 ml FLUSH ASDIRECTED PRN Vancomycin 1 gm Med 07/18/20 22:23 Active Sodium Chloride 0.9% [Normal Saline] 250 ml IV ONETIME Saline Lock Insert [OM.PC] Routine Oth 07/18/20 20:18 Ordered Resuscitation Status Routine Resus Stat 07/18/20 23:02 Ordered Medication Orders Lactated Ringer's (Ringers, Lactated) 1,000 mls @ 999 mls/hr IV ASDIRECTED FABIOLA Last Admin: 07/18/20 22:25 Dose: 999 mls/hr Documented by: SARITA Vancomycin HCl 1 gm/ Sodium (Chloride) 250 mls @ 150 mls/hr IV ONETIME ONE Stop: 07/19/20 00:02 Lactated Ringer's (Ringers, Lactated) 1,000 mls @ 125 mls/hr IV ASDIRECTED FABIOLA Sodium Chloride (Sodium Chloride 0.9% 10 Ml Syringe) 10 ml FLUSH ASDIRECTED PRN PRN Reason: Keep Vein Open Last Admin: 07/18/20 20:50 Dose: 10 ml Documented by: SARITA Assessment/Plan Comment:: Assessment/Plan: #1. Septicemia: Started her on antibiotics and cultures of urine and blood pending. CXR reveals no acute pathology. #2. DM II: Will monitor blood sugars #3. Hypotension: Will replace fluid as needed to maintain blood pressure.. #4. Cardiac dysrhythmia: #5. Chronic pain syndrome. legs and hip and feet #6: IBS: #7: Anxiety: #8. Hallucinations: - Mortality Measure Prognosis:: Poor
[2020-07-19] MEDS: Lactated Ringers 1,000 ML IV SCH ×3 (00:40→17:52)
[2020-07-19] MEDS ORDERED: Cefepime 2 GM in Sodium Chloride 0.9% 50 ML IV SCH (09:00)
[2020-07-19] MEDS: Pantoprazole 40 MG Tab.CR PO SCH (09:10)
[2020-07-19] MEDS: Gabapentin 300 MG Cap PO SCH ×3 (09:10→20:41)
[2020-07-19] MEDS: Morphine 15 MG Tab.ER PO SCH ×2 (09:10→20:44)
[2020-07-19] MEDS: busPIRone 5 MG Tab PO SCH ×2 (09:10→20:40)
[2020-07-19] MEDS: Polyethylene Glycol 3350 Powder 17 GM Packet PO SCH ×2 (09:11→09:18)
[2020-07-19] MEDS: DULoxetine 30 MG Cap PO SCH (09:11)
[2020-07-19] MEDS: Cefepime 2 GM in Sodium Chloride 0.9% 50 ML IV SCH ×2 (10:45→21:37)
[2020-07-19] MEDS: Gentamicin 0.3% Ophth Soln 5 ML Bottle EYELF SCH ×3 (10:48→21:37)
[2020-07-19] MEDS: Naproxen 250 MG Tab PO SCH ×2 (15:47→20:45)
[2020-07-19] MEDS: Acetaminophen 500 MG Tab PO SCH ×2 (15:47→20:45)
[2020-07-19] MEDS ORDERED: Glucagon,Human Recombinant 1 MG Vial IM PRN (18:35)
[2020-07-19] MEDS ORDERED: 50% Dextrose in Water 50 ML Syringe IVPUSH PRN (18:35)
[2020-07-19] MEDS ORDERED: Melatonin 3 MG Tab PO PRN (19:31)
[2020-07-19] MEDS ORDERED: QUEtiapine 25 MG Tab PO SCH (21:00)
[2020-07-19] MEDS: Insulin Lispro 100 Unit/ML 3 ML KwikPen SUBCUT SCH (21:45)
[2020-07-20] MEDS: Gentamicin 0.3% Ophth Soln 5 ML Bottle EYELF SCH ×2 (05:42→09:52)
[2020-07-20 08:03] VITALS: BP 98/48; PULSE 68
[2020-07-20] MEDS: DULoxetine 30 MG Cap PO SCH (08:04)
[2020-07-20] MEDS: Morphine 15 MG Tab.ER PO SCH (08:04)
[2020-07-20] MEDS: busPIRone 5 MG Tab PO SCH (08:04)
[2020-07-20] MEDS: Gabapentin 300 MG Cap PO SCH (08:05)
[2020-07-20] MEDS: Pantoprazole 40 MG Tab.CR PO SCH (08:05)
[2020-07-20] MEDS: Polyethylene Glycol 3350 Powder 17 GM Packet PO SCH (08:06)
[2020-07-20] MEDS: Acetaminophen 500 MG Tab PO SCH (08:11)
[2020-07-20] MEDS: Naproxen 250 MG Tab PO SCH (08:11)
--- NOTE | 2020-07-20 08:19 | PCM.PN ---
- General Info Date of Service: 07/19/20 Admission Dx/Problem (Free Text): She is alert today unhappy about being in the hospital. Functional Status: Reports: Pain Controlled - Review of Systems General: Reports: Weakness HEENT: Reports: No Symptoms Pulmonary: Reports: No Symptoms Cardiovascular: Reports: No Symptoms Gastrointestinal: Reports: No Symptoms Genitourinary: Reports: No Symptoms Musculoskeletal: Reports: Back Pain, Leg Pain, Foot Pain Skin: Reports: No Symptoms Neurological: Reports: Weakness, Gait Disturbance Psychiatric: Reports: Anxiety, Agitation - Patient Data Vitals - Most Recent: Last Vital Signs Temp 97.7 F 07/20/20 07:00 Pulse 68 07/20/20 07:00 Resp 16 07/20/20 07:00 BP 98/48 L 07/20/20 07:00 Pulse Ox 93 L 07/20/20 07:00 Weight - Most Recent: 157 lb 4.8 oz I&O - Last 24 Hours: Intake & Output 07/19/20 07/20/20 07/20/20 22:59 06:59 14:59 Intake Total 1850 100 Output Total 800 700 Balance 1050 -600 Lab Results Last 24 Hours: Laboratory Results - last 24 hr 07/19/20 07/19/20 07/19/20 Range/Units 11:30 16:33 21:05 WBC (4.5-11.0) K/uL RBC (3.30-5.50) M/uL Hgb (12.0-15.0) g/dL Hct (36.0-48.0) % MCV (80-98) fL MCH (27-31) pg MCHC (32-36) % Plt Count (150-400) K/uL Neut % (Auto) (36-66) % Lymph % (Auto) (24-44) % [place] % (Auto) (2-6) % Eos % (Auto) (2-4) % Baso % (Auto) (0-1) % Sodium (140-148) mmol/L Potassium (3.6-5.2) mmol/L Chloride (100-108) mmol/L Carbon Dioxide (21-32) mmol/L Anion Gap (5.0-14.0) mmol/L BUN (7-18) mg/dL Creatinine (0.6-1.0) mg/dL Est Cr Clr Drug Dosing mL/min Estimated GFR (MDRD) (>60) Glucose (74-106) mg/dL POC Glucose 250 H 242 H 235 H (74-106) MG/DL Calcium (8.5-10.1) mg/dL 07/20/20 07/20/20 07/20/20 Range/Units 04:10 04:10 07:22 WBC 8.3 (4.5-11.0) K/uL RBC 3.14 L (3.30-5.50) M/uL Hgb 9.2 L (12.0-15.0) g/dL Hct 29.4 L (36.0-48.0) % MCV 94 (80-98) fL MCH 29 (27-31) pg MCHC 31 L (32-36) % Plt Count 265 (150-400) K/uL Neut % (Auto) 66 (36-66) % Lymph % (Auto) 18 L (24-44) % [place] % (Auto) 11 H (2-6) % Eos % (Auto) 5 H (2-4) % Baso % (Auto) 0 (0-1) % Sodium 142 (140-148) mmol/L Potassium 4.2 (3.6-5.2) mmol/L Chloride 103 (100-108) mmol/L Carbon Dioxide 30 (21-32) mmol/L Anion Gap 9.4 (5.0-14.0) mmol/L BUN 16 (7-18) mg/dL Creatinine 0.8 (0.6-1.0) mg/dL Est Cr Clr Drug Dosing 43.62 mL/min Estimated GFR (MDRD) > 60 (>60) Glucose 138 H (74-106) mg/dL POC Glucose 124 H (74-106) MG/DL Calcium 9.2 (8.5-10.1) mg/dL Willy Results Last 24 Hours: Microbiology 07/18/20 22:15 Urine Culture - Preliminary Urine, Quick Cath (In-Out) NO GROWTH AFTER 1 DAY 07/18/20 22:45 Aerobic Blood Culture - Preliminary Blood - Arm, Right NO GROWTH AFTER 1 DAY Anaerobic Blood Culture - Preliminary NO GROWTH AFTER 1 DAY Med Orders - Current: Current Medications Acetaminophen (Acetaminophen 500 Mg Tab) 500 mg PO BID FABIOLA Last Admin: 07/20/20 08:11 Dose: 500 mg Documented by: Buspirone HCl (Buspirone 5 Mg Tab) 15 mg PO BID [facility] Last Admin: 07/20/20 08:04 Dose: 15 mg Documented by: Dextrose/Water (50% Dextrose In Water 50 Ml Syringe) 50 ml IVPUSH ASDIRECTED PRN PRN Reason: Hypoglycemia Duloxetine HCl (Duloxetine 30 Mg Cap) 90 mg PO DAILY [facility] Last Admin: 07/20/20 08:04 Dose: 90 mg Documented by: Gabapentin (Gabapentin 300 Mg Cap) 300 mg PO TID [facility] Last Admin: 07/20/20 08:05 Dose: 300 mg Documented by: Gentamicin Sulfate (Gentamicin 0.3% Ophth Soln 5 Ml Bottle) 0 ml EYELF QID [facility] Stop: 07/22/20 22:01 Last Admin: 07/20/20 05:42 Dose: 2 drop Documented by: Glucagon (Glucagon,Human Recombinant 1 Mg Vial) 1 mg IM ASDIRECTED PRN PRN Reason: Hypoglycemia Vancomycin HCl 1 gm/ Sodium (Chloride) 250 mls @ 167 mls/hr IV Q24H [facility] Last Admin: 07/19/20 22:18 Dose: 167 mls/hr Documented by: Cefepime HCl 2 gm/ Sodium (Chloride) 50 mls @ 100 mls/hr IV Q12H [facility] Last Admin: 07/19/20 21:37 Dose: 100 mls/hr Documented by: Insulin Human Lispro (Insulin Lispro 100 Unit/Ml 3 Ml Kwikpen) 0 unit SUBCUT QIDACANDBED [facility]; Protocol Last Admin: 07/19/20 21:45 Dose: 4 units Documented by: Melatonin (Melatonin 3 Mg Tab) 9 mg PO BEDTIME PRN PRN Reason: Sleep Morphine Sulfate (Morphine 15 Mg Tab.Er) 15 mg PO BID [facility] Last Admin: 07/20/20 08:04 Dose: 15 mg Documented by: Naproxen (Naproxen 250 Mg Tab) 250 mg PO BID [facility] Last Admin: 07/20/20 08:11 Dose: 250 mg Documented by: Pantoprazole Sodium (Pantoprazole 40 Mg Tab.Cr) 40 mg PO ACBREAKFAST [facility] Last Admin: 07/20/20 08:05 Dose: 40 mg Documented by: Polyethylene Glycol (Polyethylene Glycol 3350 Powder 17 Gm Packet) 17 gm PO DAILY [facility] Last Admin: 07/20/20 08:06 Dose: Not Given Documented by: Quetiapine Fumarate (Quetiapine 25 Mg Tab) 50 mg PO BEDTIME [facility] Last Admin: 07/19/20 20:40 Dose: 50 mg Documented by: Senna/Docusate Sodium (Docusate Sodium/Sennosides 50-8.6 Mg Tab) 2 tab PO BID [facility] Last Admin: 07/20/20 08:04 Dose: 2 tab Documented by: Sodium Chloride (Sodium Chloride 0.9% 10 Ml Syringe) 10 ml FLUSH ASDIRECTED PRN PRN Reason: Keep Vein Open Last Admin: 07/18/20 20:50 Dose: 10 ml Documented by: Discontinued Medications Cefepime HCl (Cefepime 1 Gm Vial) Confirm Administered Dose 2 gm .ROUTE .STK-MED ONE Stop: 07/18/20 22:39 Last Admin: 07/18/20 22:50 Dose: Not Given Documented by: Sodium Chloride (Normal Saline) 500 mls @ 999 mls/hr IV .BOLUS ONE Stop: 07/18/20 21:38 Last Admin: 07/18/20 21:15 Dose: 999 mls/hr Documented by: Sodium Chloride (Normal Saline) 500 mls @ 999 mls/hr IV .BOLUS ONE Stop: 07/18/20 22:44 Last Admin: 07/18/20 21:47 Dose: 999 mls/hr Documented by: Lactated Ringer's (Ringers, Lactated) 1,000 mls @ 999 mls/hr IV ASDIRECTED [facility] Last Admin: 07/18/20 22:25 Dose: 999 mls/hr Documented by: Cefepime HCl 2 gm/ Sodium (Chloride) 50 mls @ 100 mls/hr IV ONETIME ONE Stop: 07/18/20 22:52 Last Admin: 07/18/20 22:50 Dose: 100 mls/hr Documented by: Vancomycin HCl 1 gm/ Sodium (Chloride) 250 mls @ 150 mls/hr IV ONETIME ONE Stop: 07/19/20 00:02 Last Admin: 07/19/20 00:41 Dose: 150 mls/hr Documented by: Sodium Chloride (Normal Saline) Confirm Administered Dose 50 mls @ as directed .ROUTE .STK-MED ONE Stop: 07/18/20 22:41 Last Admin: 07/18/20 22:52 Dose: Not Given Documented by: Lactated Ringer's (Ringers, Lactated) 1,000 mls @ 125 mls/hr IV ASDIRECTED FABIOLA Last Admin: 07/19/20 17:52 Dose: 125 mls/hr Documented by: - Exam General: Oriented, Moderate Distress HEENT: Pupils Equal, Pupils Reactive, EOMI, Mucous Membr. Moist/[place] Neck: Supple Lungs: Clear to Auscultation, Normal Respiratory Effort Cardiovascular: Regular Rate, Regular Rhythm GI/Abdominal Exam: Tender Extremities: Leg Pain Peripheral Pulses: 1+: Radial (L), Radial (R) Skin: Warm, Dry, Intact Psy/Mental Status: Anxious, Agitated - Patient Data Lab Results Last 24 hrs: Laboratory Results - last 24 hr 07/19/20 07/19/20 07/19/20 Range/Units 11:30 16:33 21:05 WBC (4.5-11.0) K/uL RBC (3.30-5.50) M/uL Hgb (12.0-15.0) g/dL Hct (36.0-48.0) % MCV (80-98) fL MCH (27-31) pg MCHC (32-36) % Plt Count (150-400) K/uL Neut % (Auto) (36-66) % Lymph % (Auto) (24-44) % [place] % (Auto) (2-6) % Eos % (Auto) (2-4) % Baso % (Auto) (0-1) % Sodium (140-148) mmol/L Potassium (3.6-5.2) mmol/L Chloride (100-108) mmol/L Carbon Dioxide (21-32) mmol/L Anion Gap (5.0-14.0) mmol/L BUN (7-18) mg/dL Creatinine (0.6-1.0) mg/dL Est Cr Clr Drug Dosing mL/min Estimated GFR (MDRD) (>60) Glucose (74-106) mg/dL POC Glucose 250 H 242 H 235 H (74-106) MG/DL Calcium (8.5-10.1) mg/dL 07/20/20 07/20/20 07/20/20 Range/Units 04:10 04:10 07:22 WBC 8.3 (4.5-11.0) K/uL RBC 3.14 L (3.30-5.50) M/uL Hgb 9.2 L (12.0-15.0) g/dL Hct 29.4 L (36.0-48.0) % MCV 94 (80-98) fL MCH 29 (27-31) pg MCHC 31 L (32-36) % Plt Count 265 (150-400) K/uL Neut % (Auto) 66 (36-66) % Lymph % (Auto) 18 L (24-44) % [place] % (Auto) 11 H (2-6) % Eos % (Auto) 5 H (2-4) % Baso % (Auto) 0 (0-1) % Sodium 142 (140-148) mmol/L Potassium 4.2 (3.6-5.2) mmol/L Chloride 103 (100-108) mmol/L Carbon Dioxide 30 (21-32) mmol/L Anion Gap 9.4 (5.0-14.0) mmol/L BUN 16 (7-18) mg/dL Creatinine 0.8 (0.6-1.0) mg/dL Est Cr Clr Drug Dosing 43.62 mL/min Estimated GFR (MDRD) > 60 (>60) Glucose 138 H (74-106) mg/dL POC Glucose 124 H (74-106) MG/DL Calcium 9.2 (8.5-10.1) mg/dL Result Diagrams: 07/20/20 04:10 07/20/20 04:10 Willy Results Last 24 hrs: Microbiology 07/18/20 22:15 Urine Culture - Preliminary Urine, Quick Cath (In-Out) NO GROWTH AFTER 1 DAY 07/18/20 22:45 Aerobic Blood Culture - Preliminary Blood - Arm, Right NO GROWTH AFTER 1 DAY Anaerobic Blood Culture - Preliminary NO GROWTH AFTER 1 DAY Sepsis Event Note - Evaluation Sepsis Screening Result: No Definite Risk - Focused Exam Vital Signs: Vital Signs Temp Pulse Resp BP BP Pulse Ox 07/20/20 07:00 97.7 F 68 16 98/48 L 93 L 07/20/20 03:58 96.1 F L 70 18 98/65 90 L 07/19/20 23:00 16 - Problem List Review Problem List Initiated/Reviewed/Updated: Yes - My Orders Last 24 Hours: My Active Orders 07/19/20 Breakfast Consistent Carbohydrate Diet [DIET] 07/19/20 08:37 SCD [Sequential Compression Device] [OM.PC] Routine 07/19/20 09:00 DULoxetine [Cymbalta] 90 mg PO DAILY Docusate Sodium/Sennosides [Senna Plus] 2 tab PO BID Gabapentin [Neurontin] 300 mg PO TID Morphine [MS Contin] 15 mg PO BID Pantoprazole [ProTONIX] 40 mg PO ACBREAKFAST busPIRone [Buspar] 15 mg PO BID polyethylene glycoL 3350 [MiraLAX] 17 gm PO DAILY 07/19/20 09:46 Communication Order [RC] DAILY 07/19/20 10:00 Cefepime [Maxipime] 2 gm Sodium Chloride 0.9% [Normal Saline] 50 ml IV Q12H Gentamicin [Garamycin 0.3% Ophth Soln] 0 ml EYELF QID 07/19/20 15:45 Acetaminophen [Tylenol Extra Strength] 500 mg PO BID Naproxen [Naprosyn] 250 mg PO BID 07/19/20 17:58 Convert IV to Saline Lock [OM.PC] Routine 07/19/20 18:35 Dextrose 50% in Water 50 ml IVPUSH ASDIRECTED PRN Glucagon,Human Recombinant [GlucaGen] 1 mg IM ASDIRECTED PRN 07/19/20 19:31 Melatonin 9 mg PO BEDTIME PRN 07/19/20 20:00 Insulin Lispro [HumaLOG] See Protocol SUBCUT QIDACANDBED 07/19/20 21:00 QUEtiapine [SEROqueL] 50 mg PO BEDTIME 07/19/20 22:00 Vancomycin 1 gm Sodium Chloride 0.9% [Normal Saline] 250 ml IV Q24H 07/20/20 11:30 GLUCOSE POC LAB TO COLLECT JPM [POC] QIDACANDBED 07/20/20 16:30 GLUCOSE POC LAB TO COLLECT JPM [POC] QIDACANDBED 07/20/20 21:00 GLUCOSE POC LAB TO COLLECT JPM [POC] QIDACANDBED 07/21/20 05:11 BASIC METABOLIC PANEL,BMP [CHEM] DAILY CBC WITH AUTO DIFF [HEME] DAILY 07/21/20 07:30 GLUCOSE POC LAB TO COLLECT JPM [POC] QIDACANDBED 07/21/20 11:30 GLUCOSE POC LAB TO COLLECT JPM [POC] QIDACANDBED 07/21/20 16:30 GLUCOSE POC LAB TO COLLECT JPM [POC] QIDACANDBED 07/21/20 21:00 GLUCOSE POC LAB TO COLLECT JPM [POC] QIDACANDBED - Plan Plan:: Assessment/Plan: #1. Septicemia: No report of cultures yet. WBC elevated today more than at admission #2. DM II: Continue to monitor blood sugars #3. Hypotension: Will continue fluid as needed to maintain blood pressure.. #4. Cardiac dysrhythmia: #5. Chronic pain syndrome. legs and hip and feet #6: IBS: #7: Anxiety: #8. Hallucinations:
--- NOTE | 2020-07-20 08:24 | PCM.PN ---
- General Info Date of Service: 07/20/20 Functional Status: Reports: Pain Controlled - Review of Systems General: Reports: Weakness HEENT: Reports: No Symptoms Pulmonary: Reports: No Symptoms Cardiovascular: Reports: No Symptoms Gastrointestinal: Reports: No Symptoms Genitourinary: Reports: No Symptoms Musculoskeletal: Reports: Back Pain, Leg Pain, Foot Pain, Joint Swelling Skin: Reports: No Symptoms Neurological: Reports: Difficulty Walking, Weakness, Gait Disturbance Psychiatric: Reports: Anxiety - Patient Data Vitals - Most Recent: Last Vital Signs Temp 97.7 F 07/20/20 07:00 Pulse 68 07/20/20 07:00 Resp 16 07/20/20 07:00 BP 98/48 L 07/20/20 07:00 Pulse Ox 93 L 07/20/20 07:00 Weight - Most Recent: 157 lb 4.8 oz I&O - Last 24 Hours: Intake & Output 07/19/20 07/20/20 07/20/20 22:59 06:59 14:59 Intake Total 1850 100 Output Total 800 700 Balance 1050 -600 Lab Results Last 24 Hours: Laboratory Results - last 24 hr 07/19/20 07/19/20 07/19/20 Range/Units 11:30 16:33 21:05 WBC (4.5-11.0) K/uL RBC (3.30-5.50) M/uL Hgb (12.0-15.0) g/dL Hct (36.0-48.0) % MCV (80-98) fL MCH (27-31) pg MCHC (32-36) % Plt Count (150-400) K/uL Neut % (Auto) (36-66) % Lymph % (Auto) (24-44) % Will % (Auto) (2-6) % Eos % (Auto) (2-4) % Baso % (Auto) (0-1) % Sodium (140-148) mmol/L Potassium (3.6-5.2) mmol/L Chloride (100-108) mmol/L Carbon Dioxide (21-32) mmol/L Anion Gap (5.0-14.0) mmol/L BUN (7-18) mg/dL Creatinine (0.6-1.0) mg/dL Est Cr Clr Drug Dosing mL/min Estimated GFR (MDRD) (>60) Glucose (74-106) mg/dL POC Glucose 250 H 242 H 235 H (74-106) MG/DL Calcium (8.5-10.1) mg/dL 07/20/20 07/20/20 07/20/20 Range/Units 04:10 04:10 07:22 WBC 8.3 (4.5-11.0) K/uL RBC 3.14 L (3.30-5.50) M/uL Hgb 9.2 L (12.0-15.0) g/dL Hct 29.4 L (36.0-48.0) % MCV 94 (80-98) fL MCH 29 (27-31) pg MCHC 31 L (32-36) % Plt Count 265 (150-400) K/uL Neut % (Auto) 66 (36-66) % Lymph % (Auto) 18 L (24-44) % Will % (Auto) 11 H (2-6) % Eos % (Auto) 5 H (2-4) % Baso % (Auto) 0 (0-1) % Sodium 142 (140-148) mmol/L Potassium 4.2 (3.6-5.2) mmol/L Chloride 103 (100-108) mmol/L Carbon Dioxide 30 (21-32) mmol/L Anion Gap 9.4 (5.0-14.0) mmol/L BUN 16 (7-18) mg/dL Creatinine 0.8 (0.6-1.0) mg/dL Est Cr Clr Drug Dosing 43.62 mL/min Estimated GFR (MDRD) > 60 (>60) Glucose 138 H (74-106) mg/dL POC Glucose 124 H (74-106) MG/DL Calcium 9.2 (8.5-10.1) mg/dL Willy Results Last 24 Hours: Microbiology 07/18/20 22:15 Urine Culture - Preliminary Urine, Quick Cath (In-Out) NO GROWTH AFTER 1 DAY 07/18/20 22:45 Aerobic Blood Culture - Preliminary Blood - Arm, Right NO GROWTH AFTER 1 DAY Anaerobic Blood Culture - Preliminary NO GROWTH AFTER 1 DAY Med Orders - Current: Current Medications Acetaminophen (Acetaminophen 500 Mg Tab) 500 mg PO BID [facility] Last Admin: 07/20/20 08:11 Dose: 500 mg Documented by: Buspirone HCl (Buspirone 5 Mg Tab) 15 mg PO BID [facility] Last Admin: 07/20/20 08:04 Dose: 15 mg Documented by: Dextrose/Water (50% Dextrose In Water 50 Ml Syringe) 50 ml IVPUSH ASDIRECTED PRN PRN Reason: Hypoglycemia Duloxetine HCl (Duloxetine 30 Mg Cap) 90 mg PO DAILY [facility] Last Admin: 07/20/20 08:04 Dose: 90 mg Documented by: Gabapentin (Gabapentin 300 Mg Cap) 300 mg PO TID [facility] Last Admin: 07/20/20 08:05 Dose: 300 mg Documented by: Gentamicin Sulfate (Gentamicin 0.3% Ophth Soln 5 Ml Bottle) 0 ml EYELF QID [facility] Stop: 07/22/20 22:01 Last Admin: 07/20/20 05:42 Dose: 2 drop Documented by: Glucagon (Glucagon,Human Recombinant 1 Mg Vial) 1 mg IM ASDIRECTED PRN PRN Reason: Hypoglycemia Vancomycin HCl 1 gm/ Sodium (Chloride) 250 mls @ 167 mls/hr IV Q24H [facility] Last Admin: 07/19/20 22:18 Dose: 167 mls/hr Documented by: Cefepime HCl 2 gm/ Sodium (Chloride) 50 mls @ 100 mls/hr IV Q12H [facility] Last Admin: 07/19/20 21:37 Dose: 100 mls/hr Documented by: Insulin Human Lispro (Insulin Lispro 100 Unit/Ml 3 Ml Kwikpen) 0 unit SUBCUT QIDACANDBED [facility]; Protocol Last Admin: 07/19/20 21:45 Dose: 4 units Documented by: Melatonin (Melatonin 3 Mg Tab) 9 mg PO BEDTIME PRN PRN Reason: Sleep Morphine Sulfate (Morphine 15 Mg Tab.Er) 15 mg PO BID [facility] Last Admin: 07/20/20 08:04 Dose: 15 mg Documented by: Naproxen (Naproxen 250 Mg Tab) 250 mg PO BID [facility] Last Admin: 07/20/20 08:11 Dose: 250 mg Documented by: Pantoprazole Sodium (Pantoprazole 40 Mg Tab.Cr) 40 mg PO ACBREAKFAST [facility] Last Admin: 07/20/20 08:05 Dose: 40 mg Documented by: Polyethylene Glycol (Polyethylene Glycol 3350 Powder 17 Gm Packet) 17 gm PO DAILY [facility] Last Admin: 07/20/20 08:06 Dose: Not Given Documented by: Quetiapine Fumarate (Quetiapine 25 Mg Tab) 50 mg PO BEDTIME [facility] Last Admin: 07/19/20 20:40 Dose: 50 mg Documented by: Senna/Docusate Sodium (Docusate Sodium/Sennosides 50-8.6 Mg Tab) 2 tab PO BID [facility] Last Admin: 07/20/20 08:04 Dose: 2 tab Documented by: Sodium Chloride (Sodium Chloride 0.9% 10 Ml Syringe) 10 ml FLUSH ASDIRECTED PRN PRN Reason: Keep Vein Open Last Admin: 07/18/20 20:50 Dose: 10 ml Documented by: Discontinued Medications Cefepime HCl (Cefepime 1 Gm Vial) Confirm Administered Dose 2 gm .ROUTE .STK-MED ONE Stop: 07/18/20 22:39 Last Admin: 07/18/20 22:50 Dose: Not Given Documented by: Sodium Chloride (Normal Saline) 500 mls @ 999 mls/hr IV .BOLUS ONE Stop: 07/18/20 21:38 Last Admin: 07/18/20 21:15 Dose: 999 mls/hr Documented by: Sodium Chloride (Normal Saline) 500 mls @ 999 mls/hr IV .BOLUS ONE Stop: 07/18/20 22:44 Last Admin: 07/18/20 21:47 Dose: 999 mls/hr Documented by: Lactated Ringer's (Ringers, Lactated) 1,000 mls @ 999 mls/hr IV ASDIRECTED [facility] Last Admin: 07/18/20 22:25 Dose: 999 mls/hr Documented by: Cefepime HCl 2 gm/ Sodium (Chloride) 50 mls @ 100 mls/hr IV ONETIME ONE Stop: 07/18/20 22:52 Last Admin: 07/18/20 22:50 Dose: 100 mls/hr Documented by: Vancomycin HCl 1 gm/ Sodium (Chloride) 250 mls @ 150 mls/hr IV ONETIME ONE Stop: 07/19/20 00:02 Last Admin: 07/19/20 00:41 Dose: 150 mls/hr Documented by: Sodium Chloride (Normal Saline) Confirm Administered Dose 50 mls @ as directed .ROUTE .STK-MED ONE Stop: 07/18/20 22:41 Last Admin: 07/18/20 22:52 Dose: Not Given Documented by: Lactated Ringer's (Ringers, Lactated) 1,000 mls @ 125 mls/hr IV ASDIRECTED [facility] Last Admin: 07/19/20 17:52 Dose: 125 mls/hr Documented by: - Exam General: Oriented, Mild Distress HEENT: Pupils Equal, Pupils Reactive, EOMI, Mucous Membr. Moist/[place] Neck: Supple Lungs: Clear to Auscultation, Normal Respiratory Effort Cardiovascular: Regular Rate, Regular Rhythm GI/Abdominal Exam: Tender Extremities: Joint Swelling, Leg Pain Peripheral Pulses: 1+: Radial (L), Radial (R) Skin: Warm, Dry, Intact Psy/Mental Status: Alert, Anxious - Patient Data Lab Results Last 24 hrs: Laboratory Results - last 24 hr 07/19/20 07/19/20 07/19/20 Range/Units 11:30 16:33 21:05 WBC (4.5-11.0) K/uL RBC (3.30-5.50) M/uL Hgb (12.0-15.0) g/dL Hct (36.0-48.0) % MCV (80-98) fL MCH (27-31) pg MCHC (32-36) % Plt Count (150-400) K/uL Neut % (Auto) (36-66) % Lymph % (Auto) (24-44) % Will % (Auto) (2-6) % Eos % (Auto) (2-4) % Baso % (Auto) (0-1) % Sodium (140-148) mmol/L Potassium (3.6-5.2) mmol/L Chloride (100-108) mmol/L Carbon Dioxide (21-32) mmol/L Anion Gap (5.0-14.0) mmol/L BUN (7-18) mg/dL Creatinine (0.6-1.0) mg/dL Est Cr Clr Drug Dosing mL/min Estimated GFR (MDRD) (>60) Glucose (74-106) mg/dL POC Glucose 250 H 242 H 235 H (74-106) MG/DL Calcium (8.5-10.1) mg/dL 07/20/20 07/20/20 07/20/20 Range/Units 04:10 04:10 07:22 WBC 8.3 (4.5-11.0) K/uL RBC 3.14 L (3.30-5.50) M/uL Hgb 9.2 L (12.0-15.0) g/dL Hct 29.4 L (36.0-48.0) % MCV 94 (80-98) fL MCH 29 (27-31) pg MCHC 31 L (32-36) % Plt Count 265 (150-400) K/uL Neut % (Auto) 66 (36-66) % Lymph % (Auto) 18 L (24-44) % Will % (Auto) 11 H (2-6) % Eos % (Auto) 5 H (2-4) % Baso % (Auto) 0 (0-1) % Sodium 142 (140-148) mmol/L Potassium 4.2 (3.6-5.2) mmol/L Chloride 103 (100-108) mmol/L Carbon Dioxide 30 (21-32) mmol/L Anion Gap 9.4 (5.0-14.0) mmol/L BUN 16 (7-18) mg/dL Creatinine 0.8 (0.6-1.0) mg/dL Est Cr Clr Drug Dosing 43.62 mL/min Estimated GFR (MDRD) > 60 (>60) Glucose 138 H (74-106) mg/dL POC Glucose 124 H (74-106) MG/DL Calcium 9.2 (8.5-10.1) mg/dL Result Diagrams: 07/20/20 04:10 07/20/20 04:10 Willy Results Last 24 hrs: Microbiology 07/18/20 22:15 Urine Culture - Preliminary Urine, Quick Cath (In-Out) NO GROWTH AFTER 1 DAY 07/18/20 22:45 Aerobic Blood Culture - Preliminary Blood - Arm, Right NO GROWTH AFTER 1 DAY Anaerobic Blood Culture - Preliminary NO GROWTH AFTER 1 DAY Sepsis Event Note - Evaluation Sepsis Screening Result: No Definite Risk - Focused Exam Vital Signs: Vital Signs Temp Pulse Resp BP BP Pulse Ox 07/20/20 07:00 97.7 F 68 16 98/48 L 93 L 07/20/20 03:58 96.1 F L 70 18 98/65 90 L 07/19/20 23:00 16 - Problem List Review Problem List Initiated/Reviewed/Updated: Yes - My Orders Last 24 Hours: My Active Orders 07/19/20 Breakfast Consistent Carbohydrate Diet [DIET] 07/19/20 08:37 SCD [Sequential Compression Device] [OM.PC] Routine 07/19/20 09:00 DULoxetine [Cymbalta] 90 mg PO DAILY Docusate Sodium/Sennosides [Senna Plus] 2 tab PO BID Gabapentin [Neurontin] 300 mg PO TID Morphine [MS Contin] 15 mg PO BID Pantoprazole [ProTONIX] 40 mg PO ACBREAKFAST busPIRone [Buspar] 15 mg PO BID polyethylene glycoL 3350 [MiraLAX] 17 gm PO DAILY 07/19/20 09:46 Communication Order [RC] DAILY 07/19/20 10:00 Cefepime [Maxipime] 2 gm Sodium Chloride 0.9% [Normal Saline] 50 ml IV Q12H Gentamicin [Garamycin 0.3% Ophth Soln] 0 ml EYELF QID 07/19/20 15:45 Acetaminophen [Tylenol Extra Strength] 500 mg PO BID Naproxen [Naprosyn] 250 mg PO BID 07/19/20 17:58 Convert IV to Saline Lock [OM.PC] Routine 07/19/20 18:35 Dextrose 50% in Water 50 ml IVPUSH ASDIRECTED PRN Glucagon,Human Recombinant [GlucaGen] 1 mg IM ASDIRECTED PRN 07/19/20 19:31 Melatonin 9 mg PO BEDTIME PRN 07/19/20 20:00 Insulin Lispro [HumaLOG] See Protocol SUBCUT QIDACANDBED 07/19/20 21:00 QUEtiapine [SEROqueL] 50 mg PO BEDTIME 07/19/20 22:00 Vancomycin 1 gm Sodium Chloride 0.9% [Normal Saline] 250 ml IV Q24H 07/20/20 11:30 GLUCOSE POC LAB TO COLLECT JPM [POC] QIDACANDBED 07/20/20 16:30 GLUCOSE POC LAB TO COLLECT JPM [POC] QIDACANDBED 07/20/20 21:00 GLUCOSE POC LAB TO COLLECT JPM [POC] QIDACANDBED 07/21/20 05:11 BASIC METABOLIC PANEL,BMP [CHEM] DAILY CBC WITH AUTO DIFF [HEME] DAILY 07/21/20 07:30 GLUCOSE POC LAB TO COLLECT JPM [POC] QIDACANDBED 07/21/20 11:30 GLUCOSE POC LAB TO COLLECT JPM [POC] QIDACANDBED 07/21/20 16:30 GLUCOSE POC LAB TO COLLECT JPM [POC] QIDACANDBED 07/21/20 21:00 GLUCOSE POC LAB TO COLLECT JPM [POC] QIDACANDBED - Plan Plan:: Assessment/Plan: #1. Septicemia: Cultures negative and WBC 8,000 and Tem. 97.7. I feel she is stable to return to the [place] today. #2. DM II: Continue to monitor blood sugars #3. Hypotension: 98/48 this morning. Will cont. to hold metoprolol. #4. Cardiac dysrhythmia: stable #5. Chronic pain syndrome. legs and hip and feet will continue with MS>\. #6: IBS: Chronic #7: Anxiety: #8. Hallucinations:
--- NOTE | 2020-07-20 08:29 | PCM.HP.2 ---
H&P History of Present Illness - General Date of Service: 07/20/20 Admit Problem/Dx: She is alert today unhappy about being in the hospital. History Limitations: Reports: No Limitations - History of Present Illness Initial Comments - Free Text/Narative: She was admitted after a sudden onset of lethargy and hypotension while in the [facility]. She was brought to the ER and expected septicemia and started on antibiotics and admitted. Onset of Symptoms: Reports: Sudden Symptom Onset Date: 07/18/20 Duration of Symptoms: Reports: Hour(s): Severity: Moderate Generalized Pain Score (Numeric/FACES): 3 - Related Data Allergies/Adverse Reactions: Allergies Allergy/AdvReac Type Severity Reaction Status Date / Time NESS Inhibitors Allergy unknown Verified 04/18/20 18:55 atenolol Allergy Bradycardia Verified 04/18/20 18:55 cephalexin Allergy Shortness Verified 04/18/20 18:55 of Breath heparin Allergy Hives Verified 04/18/20 18:55 imipramine [Imipramine] Allergy Cannot Verified 04/18/20 18:55 Remember ofloxacin [From Floxin] Allergy Cannot Verified 04/18/20 18:55 Remember Penicillins Allergy Shortness Verified 04/18/20 18:55 of Breath Sulfa (Sulfonamide Allergy Shortness Verified 04/18/20 18:55 Antibiotics) of Breath tetracycline [Tetracycline] Allergy Shortness Verified 04/18/20 18:55 of Breath warfarin [Warfarin] Allergy Hives Verified 04/18/20 18:55 lisinopril AdvReac Cough Verified 04/18/20 18:55 Home Medications: Home Meds Acetaminophen [Acetaminophen Extra Strength] 500 mg PO BID 07/18/20 [History] Acetaminophen [Tylenol Extra Strength] 500 mg PO Q6H PRN 07/18/20 [History] Albuterol Sulfate [Albuterol Sulfate Hfa] 1 inhalation INH QID 07/18/20 [History] Aspirin 81 mg PO DAILY 07/18/20 [History] Calcium Carbonate [Tums] 1 - 2 tab.chew PO QID PRN 07/18/20 [History] DULoxetine HCl [Cymbalta] 90 mg PO DAILY 07/18/20 [History] Diphenoxylate HCl/Atropine [Diphenoxylate-Atrop 2.5-0.025] 1 - 2 tab-cap PO ASDIRECTED PRN MDD 6 04/02/21 [History] Furosemide 20 mg PO DAILY 07/18/20 [History] Gabapentin [Neurontin] 300 mg PO TID 07/18/20 [History] Gentamicin [Garamycin 0.3% Ophth Soln] 2 drop EYELF QID 07/18/20 [History] Insulin Aspart [NovoLOG] 4 - 14 units SUBCUT TID 07/18/20 [History] Insulin Aspart [NovoLOG] 5 units SUBCUT TIDMEALS 07/18/20 [History] Losartan Potassium 25 mg PO DAILY 07/18/20 [History] Metoprolol Succinate 25 mg PO DAILY 07/18/20 [History] Morphine Sulfate [Morphine Sulfate ER] 15 mg PO Q12H 07/18/20 [History] Naproxen Sodium 1 tab PO BID 07/18/20 [History] Omeprazole 20 mg PO DAILY 07/18/20 [History] Potassium Chloride [K-Tab ER] 16 meq PO BID 07/18/20 [History] QUEtiapine [SEROquel] 50 mg PO BEDTIME 07/18/20 [History] Sennosides/Docusate Sodium [Senna-Docusate Sodium Tablet] 2 tab PO BID 07/18/20 [History] Simvastatin 10 mg PO BEDTIME 07/18/20 [History] busPIRone HCl [Buspirone HCl] 15 mg PO BID 07/18/20 [History] polyethylene glycoL 3350 [Miralax] 17 gm PO DAILY 07/18/20 [History] Past Medical History HEENT History: Reports: Cataract, Glaucoma, Other (See Below) Other HEENT History: recurring ear infections Cardiovascular History: Reports: Heart Murmur, High Cholesterol, Hypertension, Pacemaker, SOB on Exertion, Other (See Below) Other Cardiovascular History: Paroxysmal Atrial Flutter Respiratory History: Reports: Asthma, Bronchitis, Recurrent, Sleep Apnea Gastrointestinal History: Reports: Cholelithiasis, Chronic Diarrhea, GERD Genitourinary History: Reports: Urinary Incontinence PAIN COORDINATOR History: Reports: , 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 R shoulder pain. s/p R tibia Fx 06/28/19 Neurological History: Reports: Headaches, Chronic, Neuropathy, Peripheral, Vertigo Psychiatric History: Reports: Anxiety, Depression, Panic Attack Endocrine/Metabolic History: Reports: Diabetes, Type II Hematologic History: Reports: None Immunologic History: Reports: None Oncologic (Cancer) History: Reports: None Dermatologic History: Reports: Other (See Below) Other Dermatologic History: diabetic foot ulcers - Infectious Disease History Infectious Disease History: Reports: Chicken Pox, Measles, Mumps - Past Surgical History Head Surgeries/Procedures: Reports: None HEENT Surgical History: Reports: Tonsillectomy Cardiovascular Surgical History: Reports: Pacer Respiratory Surgical History: Reports: None GI Surgical History: Reports: Appendectomy, Cholecystectomy, Colonoscopy, EGD, Other (See Below) Other GI Surgeries/Procedures: Hemorroidectomy Female Surgical History: Reports: Cystectomy, Hysterectomy, Other (See Below) Other Female Surgeries/Procedures: Had 4 bladder surgery Endocrine Surgical History: Reports: None Neurological Surgical History: Reports: None Musculoskeletal Surgical History: Reports: Knee Replacement, Other (See Below) Other Musculoskeletal Surgeries/Procedures:: left total knee 05/14/19. rt tib fx and orif Social & Family History - Family History Family Medical History: No Pertinent Family History - Tobacco Use Tobacco Use Status *Q: Unknown Ever Used Tobacco Second Hand Smoke Exposure: No - Caffeine Use Caffeine Use: Reports: Coffee - Recreational Drug Use Recreational Drug Use: No Exam - Vital Signs Vital Signs: Last Vital Signs Temp 97.7 F 07/20/20 07:00 Pulse 68 07/20/20 07:00 Resp 16 07/20/20 07:00 BP 98/48 L 07/20/20 07:00 Pulse Ox 93 L 07/20/20 07:00 Weight: 157 lb 4.8 oz - Patient Data Lab Results Last 24 hrs: Laboratory Results - last 24 hr 07/19/20 07/19/20 07/19/20 Range/Units 11:30 16:33 21:05 WBC (4.5-11.0) K/uL RBC (3.30-5.50) M/uL Hgb (12.0-15.0) g/dL Hct (36.0-48.0) % MCV (80-98) fL MCH (27-31) pg MCHC (32-36) % Plt Count (150-400) K/uL Neut % (Auto) (36-66) % Lymph % (Auto) (24-44) % [place] % (Auto) (2-6) % Eos % (Auto) (2-4) % Baso % (Auto) (0-1) % Sodium (140-148) mmol/L Potassium (3.6-5.2) mmol/L Chloride (100-108) mmol/L Carbon Dioxide (21-32) mmol/L Anion Gap (5.0-14.0) mmol/L BUN (7-18) mg/dL Creatinine (0.6-1.0) mg/dL Est Cr Clr Drug Dosing mL/min Estimated GFR (MDRD) (>60) Glucose (74-106) mg/dL POC Glucose 250 H 242 H 235 H (74-106) MG/DL Calcium (8.5-10.1) mg/dL 07/20/20 07/20/20 07/20/20 Range/Units 04:10 04:10 07:22 WBC 8.3 (4.5-11.0) K/uL RBC 3.14 L (3.30-5.50) M/uL Hgb 9.2 L (12.0-15.0) g/dL Hct 29.4 L (36.0-48.0) % MCV 94 (80-98) fL MCH 29 (27-31) pg MCHC 31 L (32-36) % Plt Count 265 (150-400) K/uL Neut % (Auto) 66 (36-66) % Lymph % (Auto) 18 L (24-44) % [place] % (Auto) 11 H (2-6) % Eos % (Auto) 5 H (2-4) % Baso % (Auto) 0 (0-1) % Sodium 142 (140-148) mmol/L Potassium 4.2 (3.6-5.2) mmol/L Chloride 103 (100-108) mmol/L Carbon Dioxide 30 (21-32) mmol/L Anion Gap 9.4 (5.0-14.0) mmol/L BUN 16 (7-18) mg/dL Creatinine 0.8 (0.6-1.0) mg/dL Est Cr Clr Drug Dosing 43.62 mL/min Estimated GFR (MDRD) > 60 (>60) Glucose 138 H (74-106) mg/dL POC Glucose 124 H (74-106) MG/DL Calcium 9.2 (8.5-10.1) mg/dL Result Diagrams: 07/20/20 04:10 07/20/20 04:10 Willy Results Last 24 hrs: Microbiology 07/18/20 22:15 Urine Culture - Preliminary Urine, Quick Cath (In-Out) NO GROWTH AFTER 1 DAY 07/18/20 22:45 Aerobic Blood Culture - Preliminary Blood - Arm, Right NO GROWTH AFTER 1 DAY Anaerobic Blood Culture - Preliminary NO GROWTH AFTER 1 DAY Sepsis Event Note - Evaluation Sepsis Screening Result: No Definite Risk - Focused Exam Vital Signs: Vital Signs Temp Pulse Resp BP BP Pulse Ox 07/20/20 07:00 97.7 F 68 16 98/48 L 93 L 07/20/20 03:58 96.1 F L 70 18 98/65 90 L 07/19/20 23:00 16 Orders Last 24hrs: Active Orders 24 hr Category Date Time Status Communication Order [RC] DAILY Care 07/19/20 09:46 Active Consistent Carbohydrate Diet [DIET] Diet 07/19/20 Breakfast Active BASIC METABOLIC PANEL,BMP [CHEM] DAILY Lab 07/21/20 05:11 Ordered CBC WITH AUTO DIFF [HEME] DAILY Lab 07/21/20 05:11 Ordered GLUCOSE POC LAB TO COLLECT JPM [POC] QIDACANDBED Lab 07/20/20 11:30 Ordered GLUCOSE POC LAB TO COLLECT JPM [POC] QIDACANDBED Lab 07/20/20 16:30 Ordered GLUCOSE POC LAB TO COLLECT JPM [POC] QIDACANDBED Lab 07/20/20 21:00 Ordered GLUCOSE POC LAB TO COLLECT JPM [POC] QIDACANDBED Lab 07/21/20 07:30 Ordered GLUCOSE POC LAB TO COLLECT JPM [POC] QIDACANDBED Lab 07/21/20 11:30 Ordered GLUCOSE POC LAB TO COLLECT JPM [POC] QIDACANDBED Lab 07/21/20 16:30 Ordered GLUCOSE POC LAB TO COLLECT JPM [POC] QIDACANDBED Lab 07/21/20 21:00 Ordered Acetaminophen [Tylenol Extra Strength] Med 07/19/20 15:45 Active 500 mg PO BID Cefepime [Maxipime] 2 gm Med 07/19/20 10:00 Active Sodium Chloride 0.9% [Normal Saline] 50 ml IV Q12H DULoxetine [Cymbalta] Med 07/19/20 09:00 Active 90 mg PO DAILY Dextrose 50% in Water Med 07/19/20 18:35 Active 50 ml IVPUSH ASDIRECTED PRN Docusate Sodium/Sennosides [Senna Plus] Med 07/19/20 09:00 Active 2 tab PO BID Gabapentin [Neurontin] Med 07/19/20 09:00 Active 300 mg PO TID Gentamicin [Garamycin 0.3% Ophth Soln] Med 07/19/20 10:00 Active 0 ml EYELF QID Glucagon,Human Recombinant [GlucaGen] Med 07/19/20 18:35 Active 1 mg IM ASDIRECTED PRN Insulin Lispro [HumaLOG] Med 07/19/20 20:00 Active See Protocol SUBCUT QIDACANDBED Melatonin Med 07/19/20 19:31 Active 9 mg PO BEDTIME PRN Morphine [MS Contin] Med 07/19/20 09:00 Active 15 mg PO BID Naproxen [Naprosyn] Med 07/19/20 15:45 Active 250 mg PO BID Pantoprazole [ProTONIX] Med 07/19/20 09:00 Active 40 mg PO ACBREAKFAST QUEtiapine [SEROqueL] Med 07/19/20 21:00 Active 50 mg PO BEDTIME Vancomycin 1 gm Med 07/19/20 22:00 Active Sodium Chloride 0.9% [Normal Saline] 250 ml IV Q24H busPIRone [Buspar] Med 07/19/20 09:00 Active 15 mg PO BID polyethylene glycoL 3350 [MiraLAX] Med 07/19/20 09:00 Active 17 gm PO DAILY Convert IV to Saline Lock [OM.PC] Routine Oth 07/19/20 17:58 Ordered SCD [Sequential Compression Device] [OM.PC] Routine Oth 07/19/20 08:37 Ordered Medication Orders Acetaminophen (Acetaminophen 500 Mg Tab) 500 mg PO BID [facility] Last Admin: 07/20/20 08:11 Dose: 500 mg Documented by: Admin: 07/19/20 20:45 Dose: 500 mg Documented by: Admin: 07/19/20 15:47 Dose: 500 mg Documented by: LOGAN Buspirone HCl (Buspirone 5 Mg Tab) 15 mg PO BID [facility] Last Admin: 07/20/20 08:04 Dose: 15 mg Documented by: Admin: 07/19/20 20:40 Dose: 15 mg Documented by: Admin: 07/19/20 09:10 Dose: 15 mg Documented by: LOGAN Dextrose/Water (50% Dextrose In Water 50 Ml Syringe) 50 ml IVPUSH ASDIRECTED PRN PRN Reason: Hypoglycemia Duloxetine HCl (Duloxetine 30 Mg Cap) 90 mg PO DAILY [facility] Last Admin: 07/20/20 08:04 Dose: 90 mg Documented by: Admin: 07/19/20 09:11 Dose: 90 mg Documented by: LOGAN Gabapentin (Gabapentin 300 Mg Cap) 300 mg PO TID [facility] Last Admin: 07/20/20 08:05 Dose: 300 mg Documented by: Admin: 07/19/20 20:41 Dose: 300 mg Documented by: Admin: 07/19/20 14:15 Dose: 300 mg Documented by: Admin: 07/19/20 09:10 Dose: 300 mg Documented by: LOGAN Gentamicin Sulfate (Gentamicin 0.3% [facility] 5 Ml Bottle) 0 ml EYELF QID [facility] Stop: 07/22/20 22:01 Last Admin: 07/20/20 05:42 Dose: 2 drop Documented by: Admin: 07/19/20 21:37 Dose: 2 drop Documented by: Admin: 07/19/20 16:34 Dose: 2 drop Documented by: Admin: 07/19/20 10:48 Dose: 2 drop Documented by: LOGAN Glucagon (Glucagon,Human Recombinant 1 Mg Vial) 1 mg IM ASDIRECTED PRN PRN Reason: Hypoglycemia Vancomycin HCl 1 gm/ Sodium (Chloride) 250 mls @ 167 mls/hr IV Q24H [facility] Last Admin: 07/19/20 22:18 Dose: 167 mls/hr Documented by: WINNIE Cefepime HCl 2 gm/ Sodium (Chloride) 50 mls @ 100 mls/hr IV Q12H [facility] Last Admin: 07/19/20 21:37 Dose: 100 mls/hr Documented by: Admin: 07/19/20 10:45 Dose: 100 mls/hr Documented by: LOGAN Insulin Human Lispro (Insulin Lispro 100 Unit/Ml 3 Ml Kwikpen) 0 unit SUBCUT QIDACANDBED [facility]; Protocol Last Admin: 07/19/20 21:45 Dose: 4 units Documented by: WINNIE Bucknerigned by: ARVIN Melatonin (Melatonin 3 Mg Tab) 9 mg PO BEDTIME PRN PRN Reason: Sleep Morphine Sulfate (Morphine 15 Mg Tab.Er) 15 mg PO BID [facility] Last Admin: 07/20/20 08:04 Dose: 15 mg Documented by: Admin: 07/19/20 20:44 Dose: 15 mg Documented by: Admin: 07/19/20 09:10 Dose: 15 mg Documented by: LOGAN Naproxen (Naproxen 250 Mg Tab) 250 mg PO BID [facility] Last Admin: 07/20/20 08:11 Dose: 250 mg Documented by: Admin: 07/19/20 20:45 Dose: 250 mg Documented by: Admin: 07/19/20 15:47 Dose: 250 mg Documented by: LOGAN Pantoprazole Sodium (Pantoprazole 40 Mg Tab.Cr) 40 mg PO ACBREAKFAST [facility] Last Admin: 07/20/20 08:05 Dose: 40 mg Documented by: Admin: 07/19/20 09:10 Dose: 40 mg Documented by: LOGAN Polyethylene Glycol (Polyethylene Glycol 3350 Powder 17 Gm Packet) 17 gm PO DAILY [facility] Last Admin: 07/20/20 08:06 Dose: Not Given Documented by: Admin: 07/19/20 09:18 Dose: Not Given Documented by: LOGAN Quetiapine Fumarate (Quetiapine 25 Mg Tab) 50 mg PO BEDTIME [facility] Last Admin: 07/19/20 20:40 Dose: 50 mg Documented by: ARVIN Senna/Docusate Sodium (Docusate Sodium/Sennosides 50-8.6 Mg Tab) 2 tab PO BID [facility] Last Admin: 07/20/20 08:04 Dose: 2 tab Documented by: Admin: 07/19/20 20:41 Dose: 2 tab Documented by: Admin: 07/19/20 09:10 Dose: 2 tab Documented by: LOGAN Sodium Chloride (Sodium Chloride 0.9% 10 Ml Syringe) 10 ml FLUSH ASDIRECTED PRN PRN Reason: Keep Vein Open Last Admin: 07/18/20 20:50 Dose: 10 ml Documented by: SARITA Assessment/Plan Comment:: Assessment/Plan: #1. Septicemia: Cultures negative and WBC 8,000 and Tem. 97.7. I feel she is stable to return to the [place] today. #2. DM II: Continue to monitor blood sugars #3. Hypotension: 98/48 this morning. Will cont. to hold metoprolol. #4. Cardiac dysrhythmia: stable #5. Chronic pain syndrome. legs and hip and feet will continue with MS>\. #6: IBS: Chronic #7: Anxiety: #8. Hallucinations:
--- NOTE | 2020-07-20 08:35 | PCM.DCSUM1 ---
Discharge Summary - Hospital Course Free Text/Narrative:: She was admitted after having a sudden onset of hypotension and confusion and unable to swallow liquids and right unilateral weakness. She was sent the the ER and admitted after having a Negative CT of the head and expected septicemia. Brief History: She has a history of chronic pain, generalized weakness and hallucinations ofter in the day or night. She is also a Diabetic II. Diagnosis: Stroke: No - Discharge Data Discharge Date: 07/20/20 Discharge Disposition: DC/Tfer to [facility] 62 Condition: Stable - Referral to Home Health Primary Care Physician: iWll Gonzalez Sr, MD - Discharge Plan Home Medications: Home Meds Acetaminophen [Acetaminophen Extra Strength] 500 mg PO BID 07/18/20 [History] Acetaminophen [Tylenol Extra Strength] 500 mg PO Q6H PRN 07/18/20 [History] Albuterol Sulfate [Albuterol Sulfate Hfa] 1 inhalation INH QID 07/18/20 [History] Aspirin 81 mg PO DAILY 07/18/20 [History] Calcium Carbonate [Tums] 1 - 2 tab.chew PO QID PRN 07/18/20 [History] DULoxetine HCl [Cymbalta] 90 mg PO DAILY 07/18/20 [History] Diphenoxylate HCl/Atropine [Diphenoxylate-Atrop 2.5-0.025] 1 - 2 tab-cap PO ASDIRECTED PRN MDD 6 07/18/20 [History] Furosemide 20 mg PO DAILY 07/18/20 [History] Gabapentin [Neurontin] 300 mg PO TID 07/18/20 [History] Gentamicin [Garamycin 0.3% Oph Soln] 2 drop EYELF QID 07/18/20 [History] Insulin Aspart [NovoLOG] 4 - 14 units SUBCUT TID 07/18/20 [History] Insulin Aspart [NovoLOG] 5 units SUBCUT TIDMEALS 07/18/20 [History] Losartan Potassium 25 mg PO DAILY 07/18/20 [History] Metoprolol Succinate 25 mg PO DAILY 07/18/20 [History] Morphine Sulfate [Morphine Sulfate ER] 15 mg PO Q12H 07/18/20 [History] Naproxen Sodium 1 tab PO BID 07/18/20 [History] Omeprazole 20 mg PO DAILY 07/18/20 [History] Potassium Chloride [K-Tab ER] 16 meq PO BID 07/18/20 [History] QUEtiapine [SEROquel] 50 mg PO BEDTIME 07/18/20 [History] Sennosides/Docusate Sodium [Senna-Docusate Sodium Tablet] 2 tab PO BID 07/18/20 [History] Simvastatin 10 mg PO BEDTIME 07/18/20 [History] busPIRone HCl [Buspirone HCl] 15 mg PO BID 07/18/20 [History] polyethylene glycoL 3350 [Miralax] 17 gm PO DAILY 07/18/20 [History] Forms: ED Department Discharge Referrals: Will Gonzalez Sr, [Primary Care Provider] - - Discharge Summary/Plan Comment DC Time >30 min.: Yes - General Info Date of Service: 07/20/20 Functional Status: Reports: Pain Controlled - Review of Systems General: Reports: Weakness HEENT: Reports: No Symptoms Pulmonary: Reports: No Symptoms Cardiovascular: Reports: No Symptoms Gastrointestinal: Reports: Abdominal Pain Genitourinary: Reports: No Symptoms Musculoskeletal: Reports: Neck Pain, Leg Pain, Foot Pain, Joint Pain Skin: Reports: No Symptoms Neurological: Reports: Difficulty Walking, Weakness, Gait Disturbance Psychiatric: Reports: Anxiety - Patient Data Vitals - Most Recent: Last Vital Signs Temp 97.7 F 07/20/20 07:00 Pulse 68 07/20/20 07:00 Resp 16 07/20/20 07:00 BP 98/48 L 07/20/20 07:00 Pulse Ox 93 L 07/20/20 07:00 Weight - Most Recent: 157 lb 4.8 oz I&O - Last 24 hours: Intake & Output 07/19/20 07/20/20 07/20/20 22:59 06:59 14:59 Intake Total 1850 100 Output Total 800 700 Balance 1050 -600 Lab Results - Last 24 hrs: Laboratory Results - last 24 hr 07/19/20 07/19/20 07/19/20 Range/Units 11:30 16:33 21:05 WBC (4.5-11.0) K/uL RBC (3.30-5.50) M/uL Hgb (12.0-15.0) g/dL Hct (36.0-48.0) % MCV (80-98) fL MCH (27-31) pg MCHC (32-36) % Plt Count (150-400) K/uL Neut % (Auto) (36-66) % Lymph % (Auto) (24-44) % [place] % (Auto) (2-6) % Eos % (Auto) (2-4) % Baso % (Auto) (0-1) % Sodium (140-148) mmol/L Potassium (3.6-5.2) mmol/L Chloride (100-108) mmol/L Carbon Dioxide (21-32) mmol/L Anion Gap (5.0-14.0) mmol/L BUN (7-18) mg/dL Creatinine (0.6-1.0) mg/dL Est Cr Clr Drug Dosing mL/min Estimated GFR (MDRD) (>60) Glucose (74-106) mg/dL POC Glucose 250 H 242 H 235 H (74-106) MG/DL Calcium (8.5-10.1) mg/dL 07/20/20 07/20/20 07/20/20 Range/Units 04:10 04:10 07:22 WBC 8.3 (4.5-11.0) K/uL RBC 3.14 L (3.30-5.50) M/uL Hgb 9.2 L (12.0-15.0) g/dL Hct 29.4 L (36.0-48.0) % MCV 94 (80-98) fL MCH 29 (27-31) pg MCHC 31 L (32-36) % Plt Count 265 (150-400) K/uL Neut % (Auto) 66 (36-66) % Lymph % (Auto) 18 L (24-44) % [place] % (Auto) 11 H (2-6) % Eos % (Auto) 5 H (2-4) % Baso % (Auto) 0 (0-1) % Sodium 142 (140-148) mmol/L Potassium 4.2 (3.6-5.2) mmol/L Chloride 103 (100-108) mmol/L Carbon Dioxide 30 (21-32) mmol/L Anion Gap 9.4 (5.0-14.0) mmol/L BUN 16 (7-18) mg/dL Creatinine 0.8 (0.6-1.0) mg/dL Est Cr Clr Drug Dosing 43.62 mL/min Estimated GFR (MDRD) > 60 (>60) Glucose 138 H (74-106) mg/dL POC Glucose 124 H (74-106) MG/DL Calcium 9.2 (8.5-10.1) mg/dL KAYLA Results - Last 24 hrs: Microbiology 07/18/20 22:15 Urine Culture - Preliminary Urine, Quick Cath (In-Out) NO GROWTH AFTER 1 DAY 07/18/20 22:45 Aerobic Blood Culture - Preliminary Blood - Arm, Right NO GROWTH AFTER 1 DAY Anaerobic Blood Culture - Preliminary NO GROWTH AFTER 1 DAY Med Orders - Current: Current Medications Acetaminophen (Acetaminophen 500 Mg Tab) 500 mg PO BID [facility] Last Admin: 07/20/20 08:11 Dose: 500 mg Documented by: Buspirone HCl (Buspirone 5 Mg Tab) 15 mg PO BID [facility] Last Admin: 07/20/20 08:04 Dose: 15 mg Documented by: Dextrose/Water (50% Dextrose In Water 50 Ml Syringe) 50 ml IVPUSH ASDIRECTED PRN PRN Reason: Hypoglycemia Duloxetine HCl (Duloxetine 30 Mg Cap) 90 mg PO DAILY [facility] Last Admin: 07/20/20 08:04 Dose: 90 mg Documented by: Gabapentin (Gabapentin 300 Mg Cap) 300 mg PO TID [facility] Last Admin: 07/20/20 08:05 Dose: 300 mg Documented by: Gentamicin Sulfate (Gentamicin 0.3% Ophth Soln 5 Ml Bottle) 0 ml EYELF QID [facility] Stop: 07/22/20 22:01 Last Admin: 07/20/20 05:42 Dose: 2 drop Documented by: Glucagon (Glucagon,Human Recombinant 1 Mg Vial) 1 mg IM ASDIRECTED PRN PRN Reason: Hypoglycemia Vancomycin HCl 1 gm/ Sodium (Chloride) 250 mls @ 167 mls/hr IV Q24H [facility] Last Admin: 07/19/20 22:18 Dose: 167 mls/hr Documented by: Cefepime HCl 2 gm/ Sodium (Chloride) 50 mls @ 100 mls/hr IV Q12H [facility] Last Admin: 07/19/20 21:37 Dose: 100 mls/hr Documented by: Insulin Human Lispro (Insulin Lispro 100 Unit/Ml 3 Ml Kwikpen) 0 unit SUBCUT QIDACANDBED [facility]; Protocol Last Admin: 07/19/20 21:45 Dose: 4 units Documented by: Melatonin (Melatonin 3 Mg Tab) 9 mg PO BEDTIME PRN PRN Reason: Sleep Morphine Sulfate (Morphine 15 Mg Tab.Er) 15 mg PO BID [facility] Last Admin: 07/20/20 08:04 Dose: 15 mg Documented by: Naproxen (Naproxen 250 Mg Tab) 250 mg PO BID [facility] Last Admin: 07/20/20 08:11 Dose: 250 mg Documented by: Pantoprazole Sodium (Pantoprazole 40 Mg Tab.Cr) 40 mg PO ACBREAKFAST [facility] Last Admin: 07/20/20 08:05 Dose: 40 mg Documented by: Polyethylene Glycol (Polyethylene Glycol 3350 Powder 17 Gm Packet) 17 gm PO DAILY [facility] Last Admin: 07/20/20 08:06 Dose: Not Given Documented by: Quetiapine Fumarate (Quetiapine 25 Mg Tab) 50 mg PO BEDTIME [facility] Last Admin: 07/19/20 20:40 Dose: 50 mg Documented by: Senna/Docusate Sodium (Docusate Sodium/Sennosides 50-8.6 Mg Tab) 2 tab PO BID [facility] Last Admin: 07/20/20 08:04 Dose: 2 tab Documented by: Sodium Chloride (Sodium Chloride 0.9% 10 Ml Syringe) 10 ml FLUSH ASDIRECTED PRN PRN Reason: Keep Vein Open Last Admin: 07/18/20 20:50 Dose: 10 ml Documented by: Discontinued Medications Cefepime HCl (Cefepime 1 Gm Vial) Confirm Administered Dose 2 gm .ROUTE .STK-MED ONE Stop: 07/18/20 22:39 Last Admin: 07/18/20 22:50 Dose: Not Given Documented by: Sodium Chloride (Normal Saline) 500 mls @ 999 mls/hr IV .BOLUS ONE Stop: 07/18/20 21:38 Last Admin: 07/18/20 21:15 Dose: 999 mls/hr Documented by: Sodium Chloride (Normal Saline) 500 mls @ 999 mls/hr IV .BOLUS ONE Stop: 07/18/20 22:44 Last Admin: 07/18/20 21:47 Dose: 999 mls/hr Documented by: Lactated Ringer's (Ringers, Lactated) 1,000 mls @ 999 mls/hr IV ASDIRECTED [facility] Last Admin: 07/18/20 22:25 Dose: 999 mls/hr Documented by: Cefepime HCl 2 gm/ Sodium (Chloride) 50 mls @ 100 mls/hr IV ONETIME ONE Stop: 07/18/20 22:52 Last Admin: 07/18/20 22:50 Dose: 100 mls/hr Documented by: Vancomycin HCl 1 gm/ Sodium (Chloride) 250 mls @ 150 mls/hr IV ONETIME ONE Stop: 07/19/20 00:02 Last Admin: 07/19/20 00:41 Dose: 150 mls/hr Documented by: Sodium Chloride (Normal Saline) Confirm Administered Dose 50 mls @ as directed .ROUTE .STK-MED ONE Stop: 07/18/20 22:41 Last Admin: 07/18/20 22:52 Dose: Not Given Documented by: Lactated Ringer's (Ringers, Lactated) 1,000 mls @ 125 mls/hr IV ASDIRECTED [facility] Last Admin: 07/19/20 17:52 Dose: 125 mls/hr Documented by: - Exam General: Reports: Oriented, Cooperative, Mild Distress HEENT: Reports: Pupils Equal, Pupils Reactive, EOMI, Mucous Membr. Moist/[place] Neck: Reports: Supple Lungs: Reports: Clear to Auscultation, Normal Respiratory Effort Cardiovascular: Reports: Regular Rate GI/Abdominal Exam: Normal Bowel Sounds, Soft, Tender Back Exam: Reports: Vertebral Tenderness Extremities: Leg Pain, Redness Skin: Reports: Warm, Dry, Intact Psy/Mental Status: Reports: Anxious
[2020-07-20] MEDS: Insulin Lispro 100 Unit/ML 3 ML KwikPen SUBCUT SCH (09:48)
[2020-07-20] MEDS: Cefepime 2 GM in Sodium Chloride 0.9% 50 ML IV SCH (09:51)
--- NOTE | 2020-07-21 09:07 | CR ---
CHEST: 2 view CLINICAL HISTORY:Cough and dyspnea COMPARISON:January 2020 FINDINGS: The patient is moderately lordotic in position. Heart size is mildly enlarged. Pulmonary vascular is normal. There is some streaky density in the right perihilar region. This may represent some atelectasis. Minimal infiltrate is not excluded. There are atherosclerotic changes in the aorta. IMPRESSION: Limited 2 view chest Minimal streaky density in right perihilar region most likely represents some streaky atelectasis. Infiltrate is felt less likely but not excluded If clinical symptomatology persists or worsens a repeat exam is recommended.
== END 2020-07-20 10:58 | DRG 872 ==
LOC: JP.ED 19:59 → JP.MS 23:07
PROVIDERS: ADMIT Internal Medicine; ATTEND Internal Medicine
DX: A41.9 Sepsis, unspecified organism (principal); R44.3 Hallucinations, unspecified; D72.823 Leukemoid reaction; I48.92 Unspecified atrial flutter; E11.9 Type 2 diabetes mellitus without complications; G89.4 Chronic pain syndrome; K58.9 Irritable bowel syndrome, unspecified; F41.9 Anxiety disorder, unspecified; Z66 Do not resuscitate; E78.00 Pure hypercholesterolemia, unspecified; I10 Essential (primary) hypertension; G47.30 Sleep apnea, unspecified; K21.9 Gastro-esophageal reflux disease without esophagitis; E11.42 Type 2 diabetes mellitus with diabetic polyneuropathy; F41.0 Panic disorder [episodic paroxysmal anxiety]; R32 Unspecified urinary incontinence; E86.1 Hypovolemia; H40.9 Unspecified glaucoma; J45.909 Unspecified asthma, uncomplicated; F32.9 Major depressive disorder, single episode, unspecified; R29.810 Facial weakness; Z88.1 Allergy status to other antibiotic agents; Z88.8 Allergy status to other drugs, medicaments and biological substances; Z88.6 Allergy status to analgesic agent; Z88.2 Allergy status to sulfonamides; Z79.82 Long term (current) use of aspirin; Z79.4 Long term (current) use of insulin; Z79.01 Long term (current) use of anticoagulants; Z95.0 Presence of cardiac pacemaker; Z88.0 Allergy status to penicillin; Z79.899 Other long term (current) drug therapy
CPT/HCPCS: 36415; 70450; 71046; 71046-26; 80048; 80053; 81001; 82962; 83605; 84145; 84484; 85025; 85610; 85730; 86140; 87040; 87086; 96374; 99285-25; A9270-GY; J0692; J1815; J3370; J7040; J7050; J7120

== ENCOUNTER 2021-03-22 22:32 | Emergency (ER) | payer MEDICARE, BC, MEDICAID ==
[2021-03-22 22:43] VITALS: BP 146/54; PULSE 61
--- NOTE | 2021-03-22 22:55 | EDM.PDOC ---
ED HPI GENERAL MEDICAL PROBLEM - General Chief Complaint: Lower Extremity Injury/Pain Stated Complaint: L FOOT INJURY Time Seen by Provider: 03/22/21 22:33 Source of Information: Reports: Shelter Records History Limitations: Reports: No Limitations - History of Present Illness INITIAL COMMENTS - FREE TEXT/NARRATIVE: Sandra is an 81-year-old female from [facility] who was sent in for evaluation of left foot or ankle pain. The patient was being assisted up by the EARLY CHILDHOOD AIDE CLASSROOM while trying to get off the toilet. The EARLY CHILDHOOD AIDE CLASSROOM stated that she heard a loud crack and the patient yelled and explained "Ow". The patient has not been able to put any weight on her left foot since then and the EARLY CHILDHOOD AIDE CLASSROOM got a wheelchair and assisted the patient back to her bed. The patient was able to bear some weight on both feet to stand and pivot to return to bed but she has evidence for pain when pushing on the bottom of the left foot. Patient wanted to come to the ER to be evaluated for possible foot or ankle fracture. Left Foot Pain Score (Numeric/FACES): 6 - Related Data Allergies Allergy/AdvReac Type Severity Reaction Status Date / Time NESS Inhibitors Allergy unknown Verified 03/22/21 22:43 atenolol Allergy Bradycardia Verified 03/22/21 22:43 cephalexin Allergy Shortness Verified 03/22/21 22:43 of Breath heparin Allergy Hives Verified 03/22/21 22:43 imipramine [Imipramine] Allergy Cannot Verified 03/22/21 22:43 Remember ofloxacin [From Floxin] Allergy Cannot Verified 03/22/21 22:43 Remember Penicillins Allergy Shortness Verified 03/22/21 22:43 of Breath Sulfa (Sulfonamide Allergy Shortness Verified 03/22/21 22:43 Antibiotics) of Breath tetracycline [Tetracycline] Allergy Shortness Verified 03/22/21 22:43 of Breath warfarin [Warfarin] Allergy Hives Verified 03/22/21 22:43 lisinopril AdvReac Cough Verified 03/22/21 22:43 Home Meds: Home Meds Acetaminophen [Acetaminophen Extra Strength] 1,000 mg PO TID 07/18/20 [History] Albuterol Sulfate [Albuterol Sulfate Hfa] 1 inhalation INH QID 07/18/20 [H istory] Aspirin 81 mg PO DAILY 07/18/20 [History] Calcium Carbonate [Tums] 1 - 2 tab.chew PO QID PRN 07/18/20 [History] DULoxetine HCl [Cymbalta] 60 mg PO DAILY 07/18/20 [History] Furosemide 20 mg PO DAILY 07/18/20 [History] Gabapentin [Neurontin] 300 mg PO TID 07/18/20 [History] Insulin Aspart [NovoLOG] 4 - 14 units SUBCUT TID 07/18/20 [History] Omeprazole 20 mg PO DAILY 07/18/20 [History] Potassium Chloride [K-Tab ER] 16 meq PO BID 07/18/20 [History] Sennosides/Docusate Sodium [Senna-Docusate Sodium Tablet] 2 tab PO BID 07/18/20 [History] polyethylene glycoL 3350 [Miralax] 17 gm PO DAILY 07/18/20 [History] Cholecalciferol (Vitamin D3) [Vitamin D3] 1,000 unit PO DAILY 11/07/20 [History] Diclofenac Sodium [Voltaren 1% Gel] 4 gm TOP QID PRN 11/07/20 [History] Fluticasone Furoate [Arnuity Ellipta] 1 puff IH DAILY 11/07/20 [History] Loperamide [Imodium AD] 2 mg PO ASDIRECTED PRN 11/07/20 [History] Metoprolol Succinate 25 mg PO BID 11/07/20 [History] Morphine Sulfate 2.5 ml PO TID 11/07/20 [History] OLANZapine [Olanzapine] 5 mg PO BEDTIME 11/07/20 [History] Propylene Glycol/PEG 400/Pf [Systane 0.3-0.4% Eye Drops] 1 each OP QID 11/07/20 [History] Trolamine Salicylate/Aloe Vera [Aspercreme 10% Cream] 85 gm TP Q4HR PRN 11/07/20 [History] traZODone HCl [Trazodone HCl] 50 mg PO BEDTIME 11/07/20 [History] Insulin Glargine,Hum.Rec.Anlog [Basaglar Kwikpen U-100] 26 units SQ BEDTIME 01/29/21 [History] LORazepam [Ativan] 0.5 mg PO BID PRN 01/29/21 [History] Nitroglycerin [Nitrostat] 0.4 mg SL ASDIRECTED PRN 01/29/21 [History] Nystatin [Nystop] 1 applic TP TID 01/29/21 [History] PEG 400/Propylene Glycol [Systane Lubricant Gel] 1 drop EYEBOTH DAILY 01/29/21 [History] HYDROmorphone HCl/PF [Hydromorphone 1 mg/ml Vial] 2 ml BUCCAL TID 03/22/21 [History] Past Medical History HEENT History: Reports: Cataract, Glaucoma, Other (See Below) Other HEENT History: recurring ear infections Cardiovascular History: Reports: Heart Murmur, High Cholesterol, Hypertension, Pacemaker, SOB on Exertion, Other (See Below) Other Cardiovascular History: Paroxysmal Atrial Flutter Respiratory History: Reports: Asthma, Bronchitis, Recurrent, Sleep Apnea Gastrointestinal History: Reports: Cholelithiasis, Chronic Diarrhea, GERD Genitourinary History: Reports: Urinary Incontinence PHYSIATRIST History: Reports: , 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 R shoulder pain. s/p R tibia Fx 06/28/19 Neurological History: Reports: Headaches, Chronic, Neuropathy, Peripheral, Vertigo Psychiatric History: Reports: Anxiety, Depression, Panic Attack Endocrine/Metabolic History: Reports: Diabetes, Type II Hematologic History: Reports: None Immunologic History: Reports: None Oncologic (Cancer) History: Reports: None Dermatologic History: Reports: Other (See Below) Other Dermatologic History: diabetic foot ulcers - Infectious Disease History Infectious Disease History: Reports: Chicken Pox, Measles, Mumps - Past Surgical History Head Surgeries/Procedures: Reports: None HEENT Surgical History: Reports: Tonsillectomy Cardiovascular Surgical History: Reports: Pacer Respiratory Surgical History: Reports: None GI Surgical History: Reports: Appendectomy, Cholecystectomy, Colonoscopy, EGD, Other (See Below) Other GI Surgeries/Procedures: Hemorroidectomy Female Surgical History: Reports: Cystectomy, Hysterectomy, Other (See Below) Other Female Surgeries/Procedures: Had 4 bladder surgery Endocrine Surgical History: Reports: None Neurological Surgical History: Reports: None Musculoskeletal Surgical History: Reports: Knee Replacement, Other (See Below) Other Musculoskeletal Surgeries/Procedures:: left total knee 05/14/19. rt tib fx and orif Social & Family History - Family History Family Medical History: No Pertinent Family History - Caffeine Use Caffeine Use: Reports: Coffee Review of Systems - Review of Systems Review Of Systems: See Below Constitutional: Reports: No Symptoms Musculoskeletal: Reports: Foot Pain (Left foot and ankle pain) Skin: Reports: No Symptoms Neurological: Reports: No Symptoms Psychiatric: Reports: No Symptoms ED EXAM, GENERAL - Physical Exam Exam: See Below Exam Limited By: No Limitations Extremities: No Pedal Edema, Limited Range of Motion (The patient has increased pain with flexion of the foot and I am able to reproduce symptoms with palpation at the base of the calcaneus consistent with acute plantar fasciitis) Neurological: Alert, Oriented, Normal Cognition, No Motor/Sensory Deficits Course - Vital Signs Last Recorded V/S: Last Vital Signs Temp 36.1 C 03/22/21 22:42 Pulse 61 03/22/21 22:42 Resp 16 03/22/21 22:42 BP 146/54 H 03/22/21 22:42 Pulse Ox 96 03/22/21 22:42 - Orders/Labs/Meds Orders: Active Orders 24 hr Category Date Time Status Ankle Min 3V Lt [CR] Stat Exams 03/22/21 22:34 Ordered Foot Comp Min 3V Lt [CR] Stat Exams 03/22/21 22:34 Taken - Radiology Interpretation Free Text/Narrative:: I reviewed the x-rays of the left foot and ankle. There is no acute osseous abnormalities. - Re-Assessments/Exams Free Text/Narrative Re-Assessment/Exam: 03/22/21 23:06 examination of the left ankle and foot are unremarkable except for significant pain with flexion of the foot and with palpation at the base of the calcaneus at the plantar fascia insertion consistent with acute plantar fasciitis. I will see if we have any silicone inserts for the heel to take the pressure off the plantar fascia. Departure - Departure Time of Disposition: 23:09 Disposition: DC/Tfer to [facility] Clinical Impression: Plantar fasciitis of left foot - Discharge Information Instructions: Plantar Fasciitis Referrals: Will Gonzalez Sr, MD [Primary Care Provider] - Forms: ED Department Discharge Care Plan Goals: I would recommend applying Voltaren 1% gel to the left foot plantar surface at the area of pain twice daily. You may need to follow-up with podiatry to get a gel heel pad and arch support insert for your shoe. Follow-up with Dr. Gonzalez if not improving. Sepsis Event Note (ED) - Evaluation Sepsis Screening Result: No Definite Risk - Focused Exam Vital Signs: Vital Signs Temp Pulse Resp BP Pulse Ox 03/22/21 22:42 36.1 C 61 16 146/54 H 96 - Problem List & Annotations (1) Plantar fasciitis of left foot SNOMED Code(s): 945699196 Code(s): M72.2 - PLANTAR FASCIAL FIBROMATOSIS Status: Acute Priority: Medium Current Visit: Yes - Problem List Review Problem List Initiated/Reviewed/Updated: Yes - My Orders Last 24 Hours: My Active Orders 03/22/21 22:34 Ankle Min 3V Lt [CR] Stat Foot Comp Min 3V Lt [CR] Stat - Assessment/Plan Last 24 Hours: My Active Orders 03/22/21 22:34 Ankle Min 3V Lt [CR] Stat Foot Comp Min 3V Lt [CR] Stat
--- NOTE | 2021-03-23 10:52 | CR ---
Foot Comp Min 3V Lt CLINICAL HISTORY: Pain FINDINGS: There are moderate hammertoe deformities of the second through fourth toes. There is osteoarthritis at the first MTP joint and interphalangeal joints diffusely. No definite fracture is seen. There is moderate deformity of the calcaneus and talocalcaneal joint IMPRESSION: No acute bony process. Moderate hammertoe deformities Osteoarthritis
--- NOTE | 2021-03-23 10:53 | CR ---
Ankle Min 3V Lt CLINICAL HISTORY: Pain FINDINGS: The soft tissues appear mildly swollen No acute fracture or dislocation is noted. Ankle mortise is intact. There is generalized osteoarthritic change. Bones are osteopenic. There is a calcaneal spur. Impression: Degenerative changes No acute fracture or dislocation Osteopenia
== END 2021-03-22 23:29 ==
LOC: JP.ED 22:32
DX: M72.2 Plantar fascial fibromatosis (principal); E78.00 Pure hypercholesterolemia, unspecified; I10 Essential (primary) hypertension; J45.909 Unspecified asthma, uncomplicated; E11.42 Type 2 diabetes mellitus with diabetic polyneuropathy; M19.90 Unspecified osteoarthritis, unspecified site; K21.9 Gastro-esophageal reflux disease without esophagitis; Z88.8 Allergy status to other drugs, medicaments and biological substances; Z88.1 Allergy status to other antibiotic agents; Z88.0 Allergy status to penicillin; Z88.2 Allergy status to sulfonamides; Z79.82 Long term (current) use of aspirin; Z79.4 Long term (current) use of insulin; Z79.899 Other long term (current) drug therapy
CPT/HCPCS: 73610-26-LT; 73610-LT; 73630-26-LT; 73630-LT; 99283-25

== ENCOUNTER 2021-10-11 10:30 | Emergency (ER) | payer MEDICARE, BC, MEDICAID ==
[2021-10-11] MEDS ORDERED: fentaNYL 100 MCG/2 ML SDV IM ONE (11:07)
[2021-10-11 11:39] LABS: ESTIMATED GFR 56 mL/min (>60)
[2021-10-11 15:19] VITALS: BP 98/68; PULSE 69
== END 2021-10-11 17:28 ==
LOC: JP.ED 10:30
DX: S82.032A Displaced transverse fracture of left patella, initial encounter for closed fracture (principal); E78.00 Pure hypercholesterolemia, unspecified; I10 Essential (primary) hypertension; J44.9 Chronic obstructive pulmonary disease, unspecified; E11.42 Type 2 diabetes mellitus with diabetic polyneuropathy; Z88.1 Allergy status to other antibiotic agents; Z88.0 Allergy status to penicillin; Z88.8 Allergy status to other drugs, medicaments and biological substances; Z79.01 Long term (current) use of anticoagulants; Z88.2 Allergy status to sulfonamides; Z79.82 Long term (current) use of aspirin; Z79.899 Other long term (current) drug therapy; W19.XXXA Unspecified fall, initial encounter
CPT/HCPCS: 36415; 73562-LT; 80053; 83605; 85025; 86140; 96372; 99283; 99284; J3010

== ENCOUNTER 2021-10-12 11:58 | Emergency (ER) | payer MEDICARE, BC, MEDICAID ==
[2021-10-12 12:23] VITALS: BP 96/44
[2021-10-12 12:24] VITALS: PULSE 87
== END 2021-10-12 13:56 | disposition home or self-care (01) ==
LOC: JP.ED 11:58
DX: S82.032 Displaced transverse fracture of left patella (principal); J44.9 Chronic obstructive pulmonary disease, unspecified; E11.9 Type 2 diabetes mellitus without complications; K21.9 Gastro-esophageal reflux disease without esophagitis; E66.9 Obesity, unspecified; Z68.35 Body mass index [BMI] 35.0-35.9, adult; Z79.82 Long term (current) use of aspirin; Z95.0 Presence of cardiac pacemaker; Z88.1 Allergy status to other antibiotic agents; Z88.8 Allergy status to other drugs, medicaments and biological substances; Z88.0 Allergy status to penicillin; Z88.2 Allergy status to sulfonamides; Z79.01 Long term (current) use of anticoagulants; Z79.899 Other long term (current) drug therapy; W19.XXXA Unspecified fall, initial encounter; Y92.129 Unspecified place in nursing home as the place of occurrence of the external cause
CPT/HCPCS: 99283

== ENCOUNTER 2021-10-23 05:23 | Day surgery (SDC) | payer MEDICARE, BC, MEDICAID ==
[~2021-10-23 05:23] MED LIST: Lactated Ringers 1,000 ML IV SCH
[2021-10-23] MEDS ORDERED: Bupivacaine 0.5% 30 ML SDV ONE (06:44)
[2021-10-23] MEDS ORDERED: Midazolam 1 MG/ML 2 ML SDV ONE (06:50)
[2021-10-23] MEDS ORDERED: fentaNYL 100 MCG/2 ML SDV ONE (06:50)
[2021-10-23] MEDS ORDERED: Propofol 200 MG/20 ML SDV ONE (06:50)
[2021-10-23] MEDS: Lactated Ringers 1,000 ML IV SCH (07:10)
[2021-10-23] MEDS: Nozin Nasal Sanitizer NASBOTH SCH ×3 (07:18→23:04)
[2021-10-23] MEDS ORDERED: Acetaminophen/HYDROcodone 325-5 MG Tab PO PRN (09:34)
[2021-10-23] MEDS ORDERED: Morphine 2 MG/ML SYRINGE IVPUSH PRN (09:34)
[2021-10-23] MEDS ORDERED: Acetaminophen/oxyCODONE 325-5 MG Tab PO PRN (09:34)
[2021-10-23] MEDS ORDERED: Sodium Chloride 0.9% 1,000 ML IV SCH (09:45)
[2021-10-23] MEDS ORDERED: Nitroglycerin 0.4 MG Tab.SL SL PRN (09:47)
[2021-10-23] MEDS: Albuterol 8 GM Inhaler INH SCH ×3 (11:11→23:10)
[2021-10-23] MEDS: Hypromellose 0.3% Ophth Soln 15 ML Bottle EYEBOTH SCH ×3 (11:51→23:10)
[2021-10-23] MEDS: Acetaminophen 325 MG Tab PO SCH ×4 (11:57→23:04)
[2021-10-23] MEDS: Gabapentin 400 MG Cap PO SCH ×2 (13:50→23:09)
[2021-10-23] MEDS: Morphine 10 MG/0.5 ML Oral Syringe PO SCH ×2 (13:50→23:21)
[2021-10-23] MEDS: Furosemide 20 MG Tab PO SCH (13:50)
[2021-10-23] MEDS ORDERED: Ondansetron 4 MG/2 ML SDV IVPUSH PRN (16:38)
[2021-10-23] MEDS ORDERED: Rivaroxaban 15 MG Tab PO SCH (17:00)
[2021-10-23] MEDS: Insulin NPH HUM/REG Insulin HM 100 UNIT/ML 3 ML Vial SUBCUT SCH (17:11)
[2021-10-23] MEDS ORDERED: traZODone 50 MG Tab PO SCH (21:00)
[2021-10-23] MEDS ORDERED: OLANZapine 5 MG Tab PO SCH (21:00)
[2021-10-23] MEDS: Potassium Chloride 20 MEQ Tab.ER PO SCH (23:08)
[2021-10-24] MEDS: Lactated Ringers 1,000 ML IV SCH (03:36)
[2021-10-24] MEDS: Acetaminophen 325 MG Tab PO SCH ×4 (03:37→10:45)
[2021-10-24] MEDS: Hypromellose 0.3% Ophth Soln 15 ML Bottle EYEBOTH SCH ×2 (06:06→10:43)
[2021-10-24] MEDS: Albuterol 8 GM Inhaler INH SCH (07:14)
[2021-10-24] MEDS ORDERED: Cholecalciferol (Vitamin D3) 25 MCG Tab PO SCH (09:00)
[2021-10-24] MEDS ORDERED: Mometasone Furoate Powder 220 MCG/Puff 14 Dose Inhaler INH SCH (09:00)
[2021-10-24] MEDS: DULoxetine 30 MG Cap PO SCH ×2 (09:35→10:44)
[2021-10-24] MEDS: Aspirin 81 MG Tab.Chew PO SCH ×2 (09:35→10:44)
[2021-10-24] MEDS: Pantoprazole 40 MG Tab.CR PO SCH ×2 (09:36→10:44)
[2021-10-24] MEDS: Gabapentin 400 MG Cap PO SCH ×2 (09:36→10:44)
[2021-10-24] MEDS: Furosemide 20 MG Tab PO SCH ×2 (09:37→10:44)
[2021-10-24] MEDS: Metoprolol Succinate 25 MG Tab.ER PO SCH ×2 (09:38→10:44)
[2021-10-24] MEDS: Potassium Chloride 20 MEQ Tab.ER PO SCH ×2 (09:38→10:44)
[2021-10-24] MEDS: Nozin Nasal Sanitizer NASBOTH SCH (09:38)
[2021-10-24] MEDS: Morphine 10 MG/0.5 ML Oral Syringe PO SCH (09:42)
[2021-10-24 10:44] VITALS: BP_SYST 2441.6
[2021-10-24] MEDS: Insulin NPH HUM/REG Insulin HM 100 UNIT/ML 3 ML Vial SUBCUT SCH (11:59)
== END 2021-10-24 11:45 ==
LOC: JP.SDS 05:23 → JP.MS 09:34 → JP.SDS 10-24 11:45
PROVIDERS: ATTEND Specialist
DX: S82.032A Displaced transverse fracture of left patella, initial encounter for closed fracture (principal); I10 Essential (primary) hypertension; E11.9 Type 2 diabetes mellitus without complications; E78.5 Hyperlipidemia, unspecified; J44.9 Chronic obstructive pulmonary disease, unspecified; G30.9 Alzheimer's disease, unspecified; F41.9 Anxiety disorder, unspecified; F32.A Depression, unspecified; E55.9 Vitamin D deficiency, unspecified; K58.9 Irritable bowel syndrome, unspecified; K21.9 Gastro-esophageal reflux disease without esophagitis; Z95.0 Presence of cardiac pacemaker; Z01.812 Encounter for preprocedural laboratory examination; Z20.822 Contact with and (suspected) exposure to COVID-19; Z79.899 Other long term (current) drug therapy; Z79.51 Long term (current) use of inhaled steroids; Z79.891 Long term (current) use of opiate analgesic; Z79.4 Long term (current) use of insulin; Z98.890 Other specified postprocedural states; Z87.81 Personal history of (healed) traumatic fracture; Z88.2 Allergy status to sulfonamides; Z88.1 Allergy status to other antibiotic agents; Z72.89 Other problems related to lifestyle; W19.XXXA Unspecified fall, initial encounter; Z79.82 Long term (current) use of aspirin
CPT/HCPCS: 27524; 73560; 82947; 94640; 97110; 97116; 97162; A9270; C1713; J2250; J2405; J2704; J3010; J3370; J3490; J7050; J7120; U0002

== ENCOUNTER 2021-12-29 18:26 | Emergency (ER) | payer MEDICARE, BC, MEDICAID ==
[2021-12-29 18:55] VITALS: BP 121/71; PULSE 78
[2021-12-29] MEDS: Sodium Chloride 0.9% 10 ML Syringe FLUSH PRN (19:09)
[2021-12-29 19:25] LABS: ESTIMATED GFR 45 mL/min (>60)
== END 2021-12-29 21:46 ==
LOC: JP.ED 18:26
DX: F03.91 Unspecified dementia, unspecified severity, with behavioral disturbance (principal); J44.9 Chronic obstructive pulmonary disease, unspecified; N39.0 Urinary tract infection, site not specified; E11.65 Type 2 diabetes mellitus with hyperglycemia; E11.42 Type 2 diabetes mellitus with diabetic polyneuropathy; K21.9 Gastro-esophageal reflux disease without esophagitis; E78.00 Pure hypercholesterolemia, unspecified; Z88.1 Allergy status to other antibiotic agents; Z88.0 Allergy status to penicillin; Z88.2 Allergy status to sulfonamides; Z79.01 Long term (current) use of anticoagulants; Z88.8 Allergy status to other drugs, medicaments and biological substances; Z79.899 Other long term (current) drug therapy; Z79.82 Long term (current) use of aspirin; Z79.4 Long term (current) use of insulin; Z20.822 Contact with and (suspected) exposure to COVID-19
CPT/HCPCS: 36415; 71045; 71045-26; 80053; 82947; 84145; 84484; 85025; 86140; 93005; 99285; J3490; U0002

== ENCOUNTER 2022-01-13 16:07 | Inpatient (IN) | payer MEDICARE, BC, MEDICAID ==
[2022-01-13] MEDS ORDERED: Levofloxacin/Dextrose 5%-Water 500 MG in Premix Bag 1 BAG IV ONE (17:00)
[2022-01-13 17:20] LABS: ESTIMATED GFR 41 mL/min (>60)
[2022-01-13] MEDS ORDERED: Sodium Chloride 0.9% 10 ML Syringe FLUSH PRN (19:24)
[2022-01-13] MEDS ORDERED: Sodium Chloride 0.9% 1,000 ML IV SCH (19:30)
[2022-01-13] MEDS ORDERED: Glucagon,Human Recombinant 1 MG Vial IM PRN (20:56)
[2022-01-13] MEDS ORDERED: 50% Dextrose in Water 50 ML Syringe IVPUSH PRN (20:56)
[2022-01-13] MEDS: Insulin Lispro 100 Unit/ML 3 ML KwikPen SUBCUT SCH (21:31)
[2022-01-14] MEDS: Insulin Lispro 100 Unit/ML 3 ML KwikPen SUBCUT SCH ×4 (08:05→22:35)
[2022-01-14] MEDS: Lactated Ringers 1,000 ML IV SCH ×3 (09:40→22:56)
[2022-01-14] MEDS ORDERED: Propofol 200 MG/20 ML SDV ONE (10:47)
[2022-01-14] MEDS ORDERED: Glucagon,Human Recombinant 1 MG Vial IM PRN (13:57)
[2022-01-14] MEDS ORDERED: Glucose Gel 15 GM in 37.5 GM Tube PO PRN (13:57)
[2022-01-14] MEDS ORDERED: 50% Dextrose in Water 50 ML Syringe IVPUSH PRN (13:57)
[2022-01-14] MEDS ORDERED: Albuterol/Ipratropium 3.0-0.5 MG/3 ML Neb Soln INH PRN (14:54)
[2022-01-14] MEDS ORDERED: Levofloxacin/Dextrose 5%-Water 250 MG in Premix Bag 1 BAG IV SCH ×2 (15:00→17:00)
[2022-01-14] MEDS: HYDROmorphone 0.5 MG/0.5 ML Syringe IVPUSH PRN (15:35)
[2022-01-14] MEDS ORDERED: LORazepam 0.5 MG Tab GTUBE PRN ×3 (17:04→20:06)
[2022-01-14] MEDS: Albuterol/Ipratropium 3.0-0.5 MG/3 ML Neb Soln INH SCH ×2 (17:59→22:36)
[2022-01-14] MEDS: Pantoprazole 40 MG Vial IV SCH (17:59)
[2022-01-14] MEDS ORDERED: Haloperidol 5 MG Tab GTUBE PRN (19:56)
[2022-01-14] MEDS ORDERED: LORazepam 1 MG Tab GTUBE PRN (20:06)
[2022-01-14] MEDS: Gabapentin 250 MG/5 ML Solution ML 470 ML Bottle GTUBE SCH (20:33)
[2022-01-14] MEDS: Metoprolol Tartrate 25 MG Tab GTUBE SCH (20:42)
[2022-01-14] MEDS: Acetaminophen 325 MG Tab GTUBE PRN (20:49)
[2022-01-14] MEDS ORDERED: traZODone 50 MG Tab GTUBE SCH (21:00)
[2022-01-15] MEDS ORDERED: ARNUITY ELLIPTA INH SCH (07:00)
[2022-01-15] MEDS: Albuterol/Ipratropium 3.0-0.5 MG/3 ML Neb Soln INH SCH ×4 (07:36→21:05)
[2022-01-15] MEDS ORDERED: Loperamide 1 MG/7.5 ML 7.5 ML UD Cup GTUBE PRN (08:30)
[2022-01-15] MEDS: Aspirin 81 MG Tab.Chew GTUBE SCH (08:59)
[2022-01-15] MEDS: Gabapentin 250 MG/5 ML Solution ML 470 ML Bottle GTUBE SCH ×3 (08:59→21:13)
[2022-01-15] MEDS: Furosemide 20 MG Tab GTUBE SCH ×2 (08:59→14:50)
[2022-01-15] MEDS ORDERED: Metoprolol Tartrate 25 MG Tab GTUBE SCH (09:00)
[2022-01-15] MEDS ORDERED: Aspirin 81 MG Tab.EC PO SCH (09:00)
[2022-01-15] MEDS: Metoprolol Tartrate 25 MG Tab GTUBE SCH ×2 (09:01→21:02)
[2022-01-15] MEDS: Insulin Lispro 100 Unit/ML 3 ML KwikPen SUBCUT SCH ×4 (09:07→21:09)
[2022-01-15] MEDS: Meropenem 1 GM in Sodium Chloride 0.9% 100 ML IV SCH ×2 (11:30→21:06)
[2022-01-15] MEDS ORDERED: Levofloxacin/Dextrose 5%-Water 250 MG in Premix Bag 1 BAG IV SCH (13:00)
[2022-01-15] MEDS: Potassium Chloride 20 MEQ, Lidocaine 1% 2 ML in Sodium Chloride 0.9% 100 ML IV SCH ×3 (13:03→17:19)
[2022-01-15] MEDS: Pantoprazole 40 MG Vial IV SCH (15:04)
[2022-01-15] MEDS ORDERED: Glucagon,Human Recombinant 1 MG Vial IM PRN (16:07)
[2022-01-15] MEDS ORDERED: 50% Dextrose in Water 50 ML Syringe IVPUSH PRN (16:07)
[2022-01-15] MEDS: DULoxetine 30 MG Cap GTUBE SCH (17:19)
[2022-01-15] MEDS: Acetaminophen 325 MG Tab GTUBE PRN (17:19)
[2022-01-15] MEDS ORDERED: Insulin Glargine,Human Rec. Analog 100 Units/ML 3 ML Pen SUBCUT SCH (21:00)
[2022-01-15] MEDS: OLANZapine 5 MG Tab GTUBE SCH (21:06)
[2022-01-15] MEDS: Lactated Ringers 1,000 ML IV SCH (21:07)
[2022-01-15] MEDS: HYDROmorphone 0.5 MG/0.5 ML Syringe IVPUSH PRN (21:47)
[2022-01-16 05:00] LABS: ESTIMATED GFR 64 mL/min (>60)
[2022-01-16] MEDS ORDERED: Insulin Lispro 100 Unit/ML 3 ML KwikPen SUBCUT ONE ×3 (06:34→22:00)
[2022-01-16] MEDS ORDERED: 50% Dextrose in Water 50 ML Syringe IVPUSH PRN ×2 (06:34→06:37)
[2022-01-16] MEDS ORDERED: Glucagon,Human Recombinant 1 MG Vial IM PRN ×2 (06:34→06:37)
[2022-01-16] MEDS ORDERED: Insulin Glargine,Human Rec. Analog 100 Units/ML 3 ML Pen SUBCUT ONE (06:39)
[2022-01-16] MEDS: Albuterol/Ipratropium 3.0-0.5 MG/3 ML Neb Soln INH SCH ×4 (07:05→21:47)
[2022-01-16] MEDS ORDERED: Lactated Ringers 1,000 ML IV SCH (08:30)
[2022-01-16] MEDS: Furosemide 20 MG Tab GTUBE SCH ×2 (08:49→14:18)
[2022-01-16] MEDS: Metoprolol Tartrate 25 MG Tab GTUBE SCH ×2 (08:50→21:46)
[2022-01-16] MEDS: Aspirin 81 MG Tab.Chew GTUBE SCH (08:52)
[2022-01-16] MEDS: DULoxetine 30 MG Cap GTUBE SCH (08:53)
[2022-01-16] MEDS: Gabapentin 250 MG/5 ML Solution ML 470 ML Bottle GTUBE SCH ×3 (09:00→21:47)
[2022-01-16] MEDS ORDERED: Magnesium Sulfate/Water 2 GM in Premix Bag 1 BAG IV SCH ×2 (09:00→17:00)
[2022-01-16] MEDS ORDERED: Potassium Phosphates 3 mMole/ML 15 ML SDV ONE (09:00)
[2022-01-16] MEDS ORDERED: traMADol 50 MG Tab GTUBE PRN (09:08)
[2022-01-16] MEDS ORDERED: Morphine 15 MG Tab GTUBE PRN (09:13)
[2022-01-16] MEDS: Meropenem 1 GM in Sodium Chloride 0.9% 100 ML IV SCH (09:22)
[2022-01-16] MEDS: Insulin Lispro 100 Unit/ML 3 ML KwikPen SUBCUT SCH ×3 (09:32→16:51)
[2022-01-16] MEDS ORDERED: Albuterol 90 MCG/6.7 GM Inhaler INH SCH (11:00)
[2022-01-16] MEDS: Formoterol/Mometasone 100-5 MCG 8.8 GM Inhaler IH SCH ×2 (11:48→21:47)
[2022-01-16] MEDS: Acetaminophen 325 MG Tab GTUBE PRN (14:18)
[2022-01-16] MEDS ORDERED: Pantoprazole 40 MG Delayed-Release Granules 1 Packet GTUBE SCH (16:00)
[2022-01-16] MEDS ORDERED: Insulin Lispro 100 Units/ML 3 ML Vial SUBCUT ONE (16:45)
[2022-01-16 17:35] LABS: TROPONIN I HIGH SENSITIVITY 946.9 pg/mL (<=60.3)
[2022-01-16] MEDS: Morphine 2 MG/ML SYRINGE IVPUSH PRN ×3 (18:03→23:47)
[2022-01-16] MEDS: LORazepam ORAL Concentrate 1MG/0.5ML U/D PO PRN ×2 (18:03→20:12)
[2022-01-16] MEDS ORDERED: Insulin Glargine,Human Rec. Analog 100 Units/ML 3 ML Pen SUBCUT SCH ×2 (21:00→21:30)
[2022-01-16] MEDS ORDERED: traZODone 50 MG Tab GTUBE SCH (21:00)
[2022-01-16] MEDS: OLANZapine 5 MG Tab GTUBE SCH (21:47)
[2022-01-17] MEDS ORDERED: Insulin Lispro 100 Unit/ML 3 ML KwikPen SUBCUT ONE (01:11)
[2022-01-17] MEDS: LORazepam ORAL Concentrate 1MG/0.5ML U/D PO PRN ×2 (01:32→04:11)
[2022-01-17] MEDS: Morphine 2 MG/ML SYRINGE IVPUSH PRN ×2 (01:33→04:12)
[2022-01-17] MEDS ORDERED: ARNUITY ELLIPTA INH SCH (07:00)
[2022-01-17] MEDS ORDERED: Insulin Lispro 100 Unit/ML 3 ML KwikPen SUBCUT SCH (07:00)
[2022-01-17 07:19] VITALS: BP 113/92; PULSE 62
[2022-01-17] MEDS: Albuterol/Ipratropium 3.0-0.5 MG/3 ML Neb Soln INH SCH (07:34)
[2022-01-17] MEDS: Formoterol/Mometasone 100-5 MCG 8.8 GM Inhaler IH SCH (07:34)
[2022-01-17] MEDS: Furosemide 20 MG Tab GTUBE SCH (08:38)
[2022-01-17] MEDS: Metoprolol Tartrate 25 MG Tab GTUBE SCH (08:39)
[2022-01-17] MEDS: DULoxetine 30 MG Cap GTUBE SCH (08:39)
[2022-01-17] MEDS: Aspirin 81 MG Tab.Chew GTUBE SCH (08:39)
[2022-01-17] MEDS: Gabapentin 250 MG/5 ML Solution ML 470 ML Bottle GTUBE SCH (08:39)
[2022-01-17] MEDS ORDERED: Levofloxacin 250 MG Tab PO SCH (09:00)
[2022-01-17] MEDS ORDERED: Lidocaine 4% Crm 5 GM Tube TOP SCH (09:00)
[2022-01-17] MEDS ORDERED: Insulin Glargine,Human Rec. Analog 100 Units/ML 3 ML Pen SUBCUT SCH ×2 (09:00→12:00)
== END 2022-01-17 10:15 | disposition expired | DRG 871 ==
LOC: JP.ED 16:07 → JP.ACU 16:07 → EDSTATUS 18:54 → JP.MS 19:24 → INTOOBSV 19:24 → OBSVTOIN 01-15 11:52
PROVIDERS: ADMIT Internal Medicine; ATTEND Internal Medicine
PROC: 0DH63UZ Insertion of Feeding Device into Stomach, Percutaneous Approach (ICD-10-PCS; principal; 2022-01-14)
PROC: 3E0G76Z Introduction of Nutritional Substance into Upper GI, Via Natural or Artificial Opening (ICD-10-PCS; 2022-01-14)
DX: A41.9 Sepsis, unspecified organism (principal); I21.4 Non-ST elevation (NSTEMI) myocardial infarction; N39.0 Urinary tract infection, site not specified; E46 Unspecified protein-calorie malnutrition; Z68.42 Body mass index [BMI] 45.0-49.9, adult; I46.9 Cardiac arrest, cause unspecified; R13.10 Dysphagia, unspecified; Z66 Do not resuscitate; E78.5 Hyperlipidemia, unspecified; Z51.5 Encounter for palliative care; E11.22 Type 2 diabetes mellitus with diabetic chronic kidney disease; I12.9 Hypertensive chronic kidney disease with stage 1 through stage 4 chronic kidney disease, or unspecified chronic kidney disease; N18.9 Chronic kidney disease, unspecified; F41.9 Anxiety disorder, unspecified; E11.40 Type 2 diabetes mellitus with diabetic neuropathy, unspecified; Z96.698 Presence of other orthopedic joint implants; Z96.652 Presence of left artificial knee joint; Z20.822 Contact with and (suspected) exposure to COVID-19; H40.9 Unspecified glaucoma; F03.90 Unspecified dementia, unspecified severity, without behavioral disturbance, psychotic disturbance, mood disturbance, and anxiety; R32 Unspecified urinary incontinence; J44.9 Chronic obstructive pulmonary disease, unspecified; F32.A Depression, unspecified; Z79.4 Long term (current) use of insulin; Z79.82 Long term (current) use of aspirin; Z79.899 Other long term (current) drug therapy; Z79.1 Long term (current) use of non-steroidal anti-inflammatories (NSAID); Z88.0 Allergy status to penicillin; Z88.1 Allergy status to other antibiotic agents; Z88.8 Allergy status to other drugs, medicaments and biological substances; Z88.2 Allergy status to sulfonamides; Z91.09 Other allergy status, other than to drugs and biological substances; Z98.42 Cataract extraction status, left eye; Z98.41 Cataract extraction status, right eye; Z95.0 Presence of cardiac pacemaker; Z87.19 Personal history of other diseases of the digestive system; Z87.81 Personal history of (healed) traumatic fracture; Z90.49 Acquired absence of other specified parts of digestive tract; Z90.89 Acquired absence of other organs; Z90.710 Acquired absence of both cervix and uterus; Z90.6 Acquired absence of other parts of urinary tract; Z98.890 Other specified postprocedural states; Z83.3 Family history of diabetes mellitus
CPT/HCPCS: 36415; 36600; 71045; 71045-26; 80048; 80053; 81001; 82550; 82803; 82947; 83735; 84100; 84484; 84681; 85025; 85027; 87040; 87086; 87088; 87186; 93010; 94640; A9270-GY; C9113; J1170; J1815; J1815-GY; J1956; J2185; J2270; J2704; J3475; J3480; J3490; J7030; J7120; J7620; U0002